=== PATIENT | female | born 1950 | race Caucasian/White ===

== ENCOUNTER 2020-06-09 07:35 | Outpatient (REF) | payer MEDICARE, SELFPAY ==
[2020-06-09 09:12] LABS: Estimated Average Glucose 108 mg/dL; Hemoglobin A1c % 5.4 %
[2020-06-09 09:24] LABS: Alanine Aminotransferase 22 U/L (0-31); Alkaline Phosphatase 87 U/L (39-117); Anion Gap 13 (12-20); Aspartate Amino Transferase 16 U/L (5-31); Bilirubin Total 0.7 mg/dL (0.0-1.0); Blood Urea Nitrogen 21 mg/dL (9-16); Calcium 8.6 mg/dL (8.4-10.2); Carbon Dioxide 24 mmol/L (22-29); Chloride 109 mmol/L (96-108); Estimated Glomerular Filt Rate 59; Glucose Random 98 mg/dL (60-115); Sodium 142 mmol/L (135-145); Total Protein 6.9 g/dL (6.5-8.0)
== END 2020-06-09 07:36 | disposition home or self-care (01) ==
LOC: HO.LAB 07:35
PROVIDERS: PCP Internal Medicine; Visit Provider Internal Medicine
DX: E78.00 Pure hypercholesterolemia, unspecified (principal); F32.5 Major depressive disorder, single episode, in full remission; G25.81 Restless legs syndrome; I10 Essential (primary) hypertension
CPT/HCPCS: 36415; 80053; 83036

== ENCOUNTER 2021-01-05 07:58 | Outpatient (REF) | payer MEDICARE, SELFPAY ==
[2021-01-05 09:05] LABS: MANUAL DIFF FLAG NO
[2021-01-05 09:11] LABS: Basophils Percent Auto 0.4 % (0-2); Eosinophils Absolute Auto 0.5 X10*3/uL (0.0-0.4); Eosinophils Percent Auto 4.6 % (0-4); Hematocrit 38.2 % (37-47); Hemoglobin 12.3 g/dl (12.0-16.0); Imm Gran Abs Auto 0.08 X10*3/uL (0.00-0.03); Imm Gran Pct Auto 0.8 % (0.0-0.4); Lymphocytes Absolute Auto 2.9 X10*3/uL (1.2-4.9); Lymphocytes Percent Auto 29.7 % (20-40); Mean Corpuscular HGB Conc 32.2 g/dl (31.0-35.0); Mean Corpuscular Volume 93.2 fL (80-98); Mean Platelet Volume 10.4 fL (9.4-12.3); Monocytes Absolute Auto 0.7 X10*3/uL (0.1-1.2); Monocytes Percent Auto 6.7 % (2-11); Neutrophils Absolute Auto 5.6 X10*3/uL (2.0-8.3); Neutrophils Percent Auto 57.8 % (45-73); Platelet Count 243 X10*3/uL (160-400); Red Cell Distribution Width 13.1 % (11.0-16.0); White Blood Count 9.7 X10*3/uL (4.8-10.8)
[2021-01-05 10:15] LABS: Alanine Aminotransferase 41 U/L (0-31); Alkaline Phosphatase 114 U/L (39-117); Anion Gap 10 (12-20); Aspartate Amino Transferase 25 U/L (5-31); Bilirubin Total 0.9 mg/dL (0.0-1.0); Blood Urea Nitrogen 15 mg/dL (9-16); Carbon Dioxide 28 mmol/L (22-29); Chloride 106 mmol/L (96-108); Estimated Glomerular Filt Rate 57; Glucose Random 105 mg/dL (60-115); Sodium 140 mmol/L (135-145); Total Protein 6.7 g/dL (6.5-8.0)
[2021-01-05 10:19] LABS: Thyroid Stimulating Hormone 2.27 uIU/mL (0.32-4.0)
== END 2021-01-05 07:59 | disposition home or self-care (01) ==
LOC: HO.LAB 07:58
PROVIDERS: PCP Internal Medicine; Visit Provider Internal Medicine
DX: E78.00 Pure hypercholesterolemia, unspecified (principal); G25.81 Restless legs syndrome; I10 Essential (primary) hypertension; F32.5 Major depressive disorder, single episode, in full remission
CPT/HCPCS: 36415; 80053; 84443; 85025

== ENCOUNTER 2021-01-10 10:30 | Outpatient (REF) | payer MEDICARE, SELFPAY ==
[2021-01-12 23:57] LABS: TS Negative Control Passed; TS Panel A 0; TS Panel B 0; TS Positive Control Passed; TSpotTB Negative (Negative)
== END 2021-01-10 10:31 | disposition home or self-care (01) ==
LOC: HO.LAB 10:30
PROVIDERS: PCP Internal Medicine; Visit Provider Internal Medicine
DX: Z11.1 Encounter for screening for respiratory tuberculosis (principal); E78.00 Pure hypercholesterolemia, unspecified; F32.5 Major depressive disorder, single episode, in full remission; G25.81 Restless legs syndrome; H81.11 Benign paroxysmal vertigo, right ear; I10 Essential (primary) hypertension; R00.2 Palpitations; R06.02 Shortness of breath
CPT/HCPCS: 36415; 86481

== ENCOUNTER → 2021-02-18 13:49 | Outpatient (REF) | payer MEDICARE, SELFPAY | LOC: HO.CARD 13:49 | PROVIDERS: PCP Internal Medicine; Referring Provider Internal Medicine; Visit Provider Internal Medicine | DX: R00.2 Palpitations (principal); R06.02 Shortness of breath; R42 Dizziness and giddiness; I10 Essential (primary) hypertension | CPT/HCPCS: 93005; 99202 ==

== ENCOUNTER → 2021-04-17 09:14 | Outpatient (REF) | payer MEDICARE, SELFPAY ==
--- NOTE | 2021-04-17 09:18 | CA_ITS ---
Transthoracic Echocardiogram Patient (Last, First, Middle): Maggie Porter M Gender: Female Date of : 1950 Age: 71 Procedure Date: 04/17/2021 Procedure Type: Transthoracic Echocardiogram Location: OP Height: 160.02 cm Weight: 79.38 kg BSA: 1.83 m2 Heart Rate: bpm BP: 136 / 80 mmHg Casting Technician: REGULO Miller MD: Paul Colin MD Maintenance Team Leader: Cesar Mahan MD Symptoms: R06.02 - Shortness of breath Study Quality: Fair ECG Rhythm: Sinus Conclusions: - 1. Normal LV systolic function with grade I diastolic dysfunction 2. Normal cardiac valvular Dopplers 3. Normal RVSP 4. Small pericardial effusion Findings Left Ventricle Normal left ventricular size, thickness, and systolic function. The visually estimated ejection fraction is between 60-65%. Spectral Doppler is indicative of an impaired relaxation filling pattern. E/E prime ratio is <8, consistent with normal filling pressures. Evidence suggests grade I (mild) diastolic dysfunction. Right Ventricle Normal right ventricular cavity size and systolic function. Atria Both atria are normal in size. There is lipomatous hypertrophy of the interatrial septum. There is no evidence of interatrial shunt. Aortic Valve The aortic valve was not well visualized. There is no aortic valve stenosis. There is no aortic valve regurgitation. Mitral Valve There is mild anterior and posterior mitral leaflet thickening. There is trace mitral valve regurgitation. There is no mitral valve stenosis. Pulmonic Valve The pulmonic valve was not well visualized. Tricuspid Valve Likely normal tricuspid valve structure and function. There is mild tricuspid valve regurgitation. The right ventricular systolic pressure is normal. The right ventricular systolic pressure is 29 mmHg. Normal right atrial pressure. There is no evidence of pulmonary hypertension. Great Vessels All visible segments of the aorta are normal in size. The pulmonary artery was not well visualized. Venous The inferior vena cava is normal in size and collapses greater than 50% with inspiration. Pericardium/Pleural There is a small circumferential pericardial effusion. Prior Study Comparison No prior study available for comparison. Measurements 2D Linear Measurements IVSd: 1.00 0.6-0.9/0.6-1.0 cm LVIDd: 4.50 3.9-5.3/4.2-5.9 cm LVIDd Index: 2.46 2.4-3.2/2.2-3.1 cm/m2 LVIDs: 2.61 2.0-3.6 cm LVPWd: 0.94 0.7-1.1 cm Ao Root: 3.10 2.1-3.5 cm LA Diam: 3.60 2.7-3.8/3.0-4.0 cm LAIDs Index: 1.97 1.5-2.3 cm/m2 LV Mass: 182.74 67-162/88-224 g LV Mass Index: 99.86 43-95/49-115 g/m2 LVOT Diam: 2.10 3.0+(-)1.3 cm 2D Systolic Function EF 4C: 60.90 >55% EF 2C: 62.00 >55% EF BiP: 59.80 >55% Mitral Valve MV Pk E: 0.85 MV PK A: 0.86 MV Decel Time: 239.00 E/A: 1.00 E'Lateral: 7.94 E'Medial: 7.07 E/E' Med: 12.00 E/E' Lat: 10.70 PHT: 70.00 MVA PHT: 3.[address] [place]: 3.55 Aortic Valve AoV Pk Dominic: 1.51 AoV Mn Dominic: 1.06 AoV VTI: 0.31 AoV Pk Grad: 9.00 Aov Mn Grad: 5.00 LOPEZ Cont.VTI: 2.62 LVOT LVOT Pk Dominic: 1.10 LVOT Mn Dominic: 0.73 LVOT VTI: 0.23 LVOT Pk Grad: 5.00 LVOT Mn Grad: 3.00 LVOT Diam: 2.10 LVOT Area: 3.46 Diastolic Function MV Pk E: 0.85 MV Pk A: 0.86 E/A: 1.00 E'Medial: 7.07 E/E' Med: 12.00 E' Laterial: 7.94 E/E' Lat: 10.70 Right Ventricle TAPSE (mm): 1.99 TVS' Dominic: 18.80 Tricuspid Valve TR Pk Dominic: 2.57 TR Pk Grad: 26.00 RA Press: 3.00 RVSP: 29.00 Great Vessels Aorta Ao Root-2D: 3.10 2.0-3.7 cm Ao Asc: 2.90 2.1-3.4 cm Ao Arch: 2.90 Updated in Other Vendor System with Status of Final Cesar Mahan MD electronically signed on 04/17/2021 11:01:36 AM with status of Final
--- NOTE | 2021-04-17 09:18 | HM_ITS ---
TEST PERFORMED: Cardiac event monitoring. REQUESTING PHYSICIAN: Dr. Colin INDICATION: Palpitations. ENROLLMENT PERIOD: 04/17/2021, to 05/17/2021; 30 days. FINDINGS: In the above monitoring period, underlying rhythm is sinus at 68 beats per minute. There is no evidence of any tachy or bradyarrhythmia or any other abnormalities during this time. CONCLUSION: Essentially unremarkable 30-day monitoring showing sinus rhythm only. Paul Colin MD HS/LV / [id number]
== END ==
LOC: HO.CARD 09:14
PROVIDERS: Visit Provider Internal Medicine
DX: R00.2 Palpitations (principal); R06.02 Shortness of breath
CPT/HCPCS: 93270; 93306

== ENCOUNTER → 2021-06-03 08:35 | Outpatient (BNVA) | payer MEDICARE, SELFPAY | PROVIDERS: PCP Internal Medicine; Visit Provider Internal Medicine | DX: R00.2 Palpitations (principal); R06.02 Shortness of breath; I10 Essential (primary) hypertension; I31.3 Pericardial effusion (noninflammatory) | CPT/HCPCS: 99212 ==

== ENCOUNTER 2021-07-06 07:44 | Outpatient (REF) | payer MEDICARE, SELFPAY ==
[2021-07-06 08:30] LABS: MANUAL DIFF FLAG NO
[2021-07-06 09:02] LABS: Basophils Absolute Auto 0.1 X10*3/uL (0.0-0.2); Basophils Percent Auto 0.5 % (0-2); Eosinophils Absolute Auto 0.4 X10*3/uL (0.0-0.4); Eosinophils Percent Auto 4.3 % (0-4); Hematocrit 39.2 % (37.0-47.0); Hemoglobin 12.3 g/dl (12.0-16.0); Imm Gran Abs Auto 0.08 X10*3/uL (0.00-0.03); Imm Gran Pct Auto 0.8 % (0.0-0.4); Lymphocytes Absolute Auto 2.5 X10*3/uL (1.2-4.9); Lymphocytes Percent Auto 24.6 % (20-40); Mean Corpuscular HGB Conc 31.4 g/dl (31.0-35.0); Mean Corpuscular Hemoglobin 29.5 pg (27.0-33.0); Mean Platelet Volume 10.1 fL (9.4-12.3); Monocytes Absolute Auto 0.7 X10*3/uL (0.1-1.2); Monocytes Percent Auto 6.6 % (2-11); Neutrophils Absolute Auto 6.3 x10*3/uL (2.0-8.3); Neutrophils Percent Auto 63.2 % (45-73); Platelet Count 246 X10*3/uL (160-400); Red Blood Count 4.17 X10*6/uL (4.20-5.50); Red Cell Distribution Width 13.4 % (11.0-16.0)
[2021-07-06 09:22] LABS: Alanine Aminotransferase 49 U/L (0-31); Albumin Level 4.1 g/dL (3.5-5.0); Alkaline Phosphatase 154 U/L (39-117); Anion Gap 13 (12-20); Aspartate Amino Transferase 34 U/L (5-31); Bilirubin Total 1.1 mg/dL (0.0-1.0); Blood Urea Nitrogen 13 mg/dL (9-16); Calcium 9.4 mg/dL (8.4-10.2); Carbon Dioxide 26 mmol/L (22-29); Chloride 106 mmol/L (96-108); Cholesterol 159 mg/dL; Estimated Glomerular Filt Rate 55; Glucose Random 102 mg/dL (60-115); HDL Cholesterol 50 mg/dL; LDL Cholesterol Calculated 91 mg/dl; Potassium 4.4 mmol/L (3.3-5.1); Sodium 141 mmol/L (135-145); Total Protein 7.3 g/dL (6.5-8.0); Triglycerides 93 mg/dL
[2021-07-08 08:14] LABS: Vitamin B12 > 2000 pg/mL (200-900)
== END 2021-07-06 07:45 | disposition home or self-care (01) ==
LOC: HO.LAB 07:44
PROVIDERS: PCP Internal Medicine; Visit Provider Internal Medicine
DX: E78.00 Pure hypercholesterolemia, unspecified (principal); F32.5 Major depressive disorder, single episode, in full remission; G25.81 Restless legs syndrome; H81.11 Benign paroxysmal vertigo, right ear; I10 Essential (primary) hypertension; R00.2 Palpitations; R06.02 Shortness of breath
CPT/HCPCS: 36415; 80053; 80061; 82607; 85025

== ENCOUNTER 2021-10-12 07:35 | Outpatient (REF) | payer MEDICARE, SELFPAY ==
[2021-10-12 08:31] LABS: Alanine Aminotransferase 44 U/L (0-31); Alkaline Phosphatase 157 U/L (39-117); Anion Gap 11 (12-20); Aspartate Amino Transferase 32 U/L (5-31); Bilirubin Total 0.8 mg/dL (0.0-1.0); Blood Urea Nitrogen 17 mg/dL (9-16); Carbon Dioxide 28 mmol/L (22-29); Chloride 106 mmol/L (96-108); Estimated Glomerular Filt Rate 50; Glucose Random 116 mg/dL (60-115); Potassium 4.4 mmol/L (3.3-5.1); Sodium 141 mmol/L (135-145); Total Protein 7.1 g/dL (6.5-8.0)
[2021-10-12 08:55] LABS: Ferritin 169 ng/mL (10-250); Thyroid Stimulating Hormone 2.43 uIU/mL (0.32-4.0)
== END 2021-10-12 07:36 | disposition home or self-care (01) ==
LOC: HO.LAB 07:35
PROVIDERS: PCP Internal Medicine; Visit Provider Internal Medicine
DX: E78.00 Pure hypercholesterolemia, unspecified (principal); G25.81 Restless legs syndrome; I10 Essential (primary) hypertension; I31.3 Pericardial effusion (noninflammatory); R00.2 Palpitations; R06.02 Shortness of breath
CPT/HCPCS: 36415; 80053; 82728; 84443

== ENCOUNTER 2022-01-18 07:18 | Outpatient (REF) | payer MEDICARE, SELFPAY ==
[2022-01-18 07:24] LABS: MANUAL DIFF FLAG NO
[2022-01-18 07:54] LABS: Basophils Absolute Auto 0.1 X10*3/uL (0.0-0.2); Basophils Percent Auto 0.7 % (0-2); Eosinophils Absolute Auto 0.5 X10*3/uL (0.0-0.4); Eosinophils Percent Auto 6.1 % (0-4); Hematocrit 36.8 % (37.0-47.0); Hemoglobin 11.7 g/dl (12.0-16.0); Imm Gran Abs Auto 0.05 X10*3/uL (0.00-0.03); Imm Gran Pct Auto 0.6 % (0.0-0.4); Lymphocytes Absolute Auto 2.5 X10*3/uL (1.2-4.9); Lymphocytes Percent Auto 29.9 % (20-40); Mean Corpuscular HGB Conc 31.8 g/dl (31.0-35.0); Mean Corpuscular Hemoglobin 30.2 pg (27.0-33.0); Mean Corpuscular Volume 95.1 fL (80.0-98.0); Mean Platelet Volume 10.7 fL (9.4-12.3); Monocytes Absolute Auto 0.7 X10*3/uL (0.1-1.2); Neutrophils Absolute Auto 4.6 x10*3/uL (2.0-8.3); Neutrophils Percent Auto 54.7 % (45-73); Platelet Count 218 X10*3/uL (160-400); Red Blood Count 3.87 X10*6/uL (4.20-5.50); Red Cell Distribution Width 13.5 % (11.0-16.0); White Blood Count 8.5 X10*3/uL (4.8-10.8)
[2022-01-18 08:25] LABS: Alanine Aminotransferase 57 U/L (0-31); Albumin Level 4.1 g/dL (3.5-5.0); Alkaline Phosphatase 150 U/L (39-117); Anion Gap 14 (12-20); Aspartate Amino Transferase 41 U/L (5-31); Bilirubin Total 0.8 mg/dL (0.0-1.0); Blood Urea Nitrogen 18 mg/dL (9-16); Calcium 8.8 mg/dL (8.4-10.2); Carbon Dioxide 25 mmol/L (22-29); Chloride 106 mmol/L (96-108); Estimated Glomerular Filt Rate 54; Glucose Random 100 mg/dL (60-115); Potassium 4.2 mmol/L (3.3-5.1); Sodium 141 mmol/L (135-145); Total Protein 7.2 g/dL (6.5-8.0)
== END 2022-01-18 07:19 | disposition home or self-care (01) ==
LOC: HO.LAB 07:18
PROVIDERS: PCP Internal Medicine; Visit Provider Internal Medicine
DX: E78.00 Pure hypercholesterolemia, unspecified (principal); G25.81 Restless legs syndrome; I10 Essential (primary) hypertension; R00.2 Palpitations
CPT/HCPCS: 36415; 80053; 85025

== ENCOUNTER → 2022-04-09 09:06 | Outpatient (REF) | payer MEDICARE, SELFPAY ==
--- NOTE | 2022-04-09 09:09 | CA_ITS ---
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 Normal LV systolic function with grade 2 diastolic dysfunction 2. Normal cardiac valvular Doppler with mild mitral and calcification 3. Upper limits of normal RV systolic pressure 4. Small circumferential pericardial effusion Findings Left Ventricle Normal left ventricular size, thickness, and systolic function. The visually estimated ejection fraction is between 60-65%. Spectral Doppler is indicative of a pseudonormal filling pattern. E/E prime ratio is >15, consistent with elevated filling pressures. Evidence suggests grade II (moderate) diastolic dysfunction. Right Ventricle Normal right ventricular cavity size and systolic function. Atria The left atrium is likely dilated. There is lipomatous hypertrophy of the interatrial septum. There is no evidence of interatrial shunt. The right atrium is normal in size. Aortic Valve The aortic valve structure and function is likely normal. There is no aortic valve stenosis. There is no aortic valve regurgitation. Mitral Valve Likely normal mitral valve structure and function. There is mild anterior and posterior mitral leaflet thickening. There is mild mitral annular calcification. There is trace mitral valve regurgitation. There is no mitral valve stenosis. Pulmonic Valve The pulmonic valve was not well visualized. Tricuspid Valve Likely normal tricuspid valve structure and function. There is mild tricuspid valve regurgitation. The right ventricular systolic pressure is normal. Normal right atrial pressure. There is no evidence of pulmonary hypertension. Great Vessels All visible segments of the aorta are normal in size. The pulmonary artery was not well visualized. Venous The inferior vena cava is normal in size and collapses greater than 50% with inspiration. Pericardium/Pleural There is a small circumferential pericardial effusion. Prior Study Comparison Changes noted compared to prior study dated: 04/17/2021. Grade 2 diastolic dysfunction present Measurements 2D Linear Measurements IVSd: 1.02 0.6-0.9/0.6-1.0 cm LVIDd: 4.70 3.9-5.3/4.2-5.9 cm LVIDd Index: 2.54 2.4-3.2/2.2-3.1 cm/m2 LVIDs: 2.63 2.0-3.6 cm LVPWd: 1.07 0.7-1.1 cm LA Diam: 4.00 2.7-3.8/3.0-4.0 cm LAIDs Index: 2.16 1.5-2.3 cm/m2 LV Mass: 217.59 67-162/88-224 g LV Mass Index: 117.62 43-95/49-115 g/m2 LVOT Diam: 2.10 3.0+(-)1.3 cm 2D Systolic Function EF 4C: 65.50 >55% EF 2C: 64.30 >55% EF BiP: 65.70 >55% Mitral Valve MV Pk E: 1.06 MV PK A: 0.91 MV Decel Time: 215.00 E/A: 1.20 E'Lateral: 7.72 E'Medial: 5.22 E/E' Med: 20.30 E/E' Lat: 13.70 PHT: 63.00 MVA PHT: 3.49 Decel [place]: 4.93 Aortic Valve AoV Pk Dominic: 1.55 AoV Mn Dominic: 0.95 AoV VTI: 0.34 AoV Pk Grad: 10.00 Aov Mn Grad: 4.00 LOPEZ Cont.VTI: 2.43 LVOT LVOT Pk Dominic: 1.02 LVOT Mn Dominic: 0.64 LVOT VTI: 0.24 LVOT Pk Grad: 4.00 LVOT Mn Grad: 2.00 LVOT Diam: 2.10 LVOT Area: 3.46 Diastolic Function MV Pk E: 1.06 MV Pk A: 0.91 E/A: 1.20 E'Medial: 5.22 E/E' Med: 20.30 E' Laterial: 7.72 E/E' Lat: 13.70 Right Ventricle TAPSE (mm): 28.10 TVS' Dominic: 16.50 Tricuspid Valve TR Pk Dominic: 2.85 TR Pk Grad: 32.00 RA Press: 3.00 RVSP: 35.00 Great Vessels Aorta Sinus of Valsalva: 3.12 2.0-3.5 cm Ao Asc: 2.90 2.1-3.4 cm Updated in Other Vendor System with Status of Final Cesar Mahan MD electronically signed on 04/10/2022 12:30:18 PM with status of Final
== END ==
LOC: HO.CARD 09:06
PROVIDERS: PCP Internal Medicine; Visit Provider Internal Medicine
DX: I31.39 Other pericardial effusion (noninflammatory) (principal)
CPT/HCPCS: 93306

== ENCOUNTER → 2022-06-16 08:54 | Outpatient (BNVA) | payer MEDICARE, SELFPAY | PROVIDERS: PCP Internal Medicine; Referring Provider Internal Medicine; Visit Provider Internal Medicine | DX: I25.10 Atherosclerotic heart disease of native coronary artery without angina pectoris (principal); I10 Essential (primary) hypertension; R00.1 Bradycardia, unspecified | CPT/HCPCS: 93005; 99212 ==

== ENCOUNTER 2022-06-24 08:59 | Outpatient (REF) | payer MEDICARE, SELFPAY ==
[2022-06-24 10:12] LABS: Anion Gap 12 (12-20); Blood Urea Nitrogen 20 mg/dL (9-16); Calcium 8.7 mg/dL (8.4-10.2); Carbon Dioxide 27 mmol/L (22-29); Chloride 106 mmol/L (96-108); Estimated Glomerular Filt Rate > 60; Glucose Random 130 mg/dL (60-115); Potassium 3.9 mmol/L (3.3-5.1); Sodium 141 mmol/L (135-145)
== END 2022-06-24 09:00 | disposition home or self-care (01) ==
LOC: HO.LAB 08:59
PROVIDERS: PCP Internal Medicine; Visit Provider Internal Medicine
DX: I25.10 Atherosclerotic heart disease of native coronary artery without angina pectoris (principal)
CPT/HCPCS: 36415; 80048

== ENCOUNTER 2022-07-21 09:04 | Outpatient (REF) | payer MEDICARE, SELFPAY ==
[2022-07-21 09:21] LABS: MANUAL DIFF FLAG NO
[2022-07-21 10:00] LABS: Basophils Absolute Auto 0.1 X10*3/uL (0.0-0.2); Basophils Percent Auto 0.8 % (0-2); Eosinophils Absolute Auto 0.5 X10*3/uL (0.0-0.4); Eosinophils Percent Auto 3.9 % (0-4); Hematocrit 37.7 % (37.0-47.0); Imm Gran Abs Auto 0.11 X10*3/uL (0.00-0.03); Imm Gran Pct Auto 0.9 % (0.0-0.4); Lymphocytes Absolute Auto 2.8 X10*3/uL (1.2-4.9); Lymphocytes Percent Auto 23.2 % (20-40); Mean Corpuscular HGB Conc 31.8 g/dl (31.0-35.0); Mean Corpuscular Hemoglobin 30.5 pg (27.0-33.0); Mean Corpuscular Volume 95.7 fL (80.0-98.0); Monocytes Absolute Auto 0.8 X10*3/uL (0.1-1.2); Monocytes Percent Auto 6.4 % (2-11); Neutrophils Absolute Auto 7.8 x10*3/uL (2.0-8.3); Neutrophils Percent Auto 64.8 % (45-73); Platelet Count 238 X10*3/uL (160-400); Red Blood Count 3.94 X10*6/uL (4.20-5.50); Red Cell Distribution Width 13.8 % (11.0-16.0)
[2022-07-21 10:23] LABS: Alanine Aminotransferase 36 U/L (0-31); Albumin Level 3.9 g/dL (3.5-5.0); Alkaline Phosphatase 144 U/L (39-117); Anion Gap 9 (12-20); Aspartate Amino Transferase 27 U/L (5-31); Bilirubin Total 0.8 mg/dL (0.0-1.0); Blood Urea Nitrogen 16 mg/dL (9-16); Calcium 9.1 mg/dL (8.4-10.2); Carbon Dioxide 30 mmol/L (22-29); Chloride 105 mmol/L (96-108); Cholesterol 159 mg/dL; Estimated Glomerular Filt Rate 58; Glucose Random 113 mg/dL (60-115); HDL Cholesterol 48 mg/dL; LDL Cholesterol Calculated 92 mg/dl; Potassium 4.1 mmol/L (3.3-5.1); Sodium 140 mmol/L (135-145); Total Protein 6.9 g/dL (6.5-8.0); Triglycerides 96 mg/dL
== END 2022-07-21 09:05 | disposition home or self-care (01) ==
LOC: HO.LAB 09:04
PROVIDERS: PCP Internal Medicine; Visit Provider Internal Medicine
DX: E78.00 Pure hypercholesterolemia, unspecified (principal); F33.41 Major depressive disorder, recurrent, in partial remission; I10 Essential (primary) hypertension; R74.01 Elevation of levels of liver transaminase levels
CPT/HCPCS: 36415; 80053; 80061; 85025

== ENCOUNTER → 2022-08-12 08:34 | Outpatient (BNVA) | payer MEDICARE, SELFPAY | PROVIDERS: PCP Internal Medicine; Referring Provider Internal Medicine; Visit Provider Internal Medicine | DX: I51.89 Other ill-defined heart diseases (principal); I31.39 Other pericardial effusion (noninflammatory); I10 Essential (primary) hypertension | CPT/HCPCS: 93005; 99212 ==

== ENCOUNTER 2023-01-19 06:06 | Outpatient (REF) | payer MEDICARE, SELFPAY ==
[2023-01-19 06:26] LABS: MANUAL DIFF FLAG NO
[2023-01-19 08:26] LABS: Basophils Absolute Auto 0.1 X10*3/uL (0.0-0.2); Eosinophils Absolute Auto 0.7 X10*3/uL (0.0-0.4); Eosinophils Percent Auto 6.4 % (0-4); Hematocrit 36.2 % (37.0-47.0); Hemoglobin 11.4 g/dl (12.0-16.0); Imm Gran Abs Auto 0.07 X10*3/uL (0.00-0.03); Imm Gran Pct Auto 0.7 % (0.0-0.4); Lymphocytes Absolute Auto 2.8 X10*3/uL (1.2-4.9); Lymphocytes Percent Auto 26.8 % (20-40); Mean Corpuscular HGB Conc 31.5 g/dl (31.0-35.0); Mean Corpuscular Hemoglobin 30.1 pg (27.0-33.0); Mean Corpuscular Volume 95.5 fL (80.0-98.0); Mean Platelet Volume 11.5 fL (9.4-12.3); Monocytes Absolute Auto 0.6 X10*3/uL (0.1-1.2); Monocytes Percent Auto 5.9 % (2-11); Neutrophils Absolute Auto 6.2 x10*3/uL (2.0-8.3); Neutrophils Percent Auto 59.2 % (45-73); Platelet Count 243 X10*3/uL (160-400); Red Blood Count 3.79 X10*6/uL (4.20-5.50); Red Cell Distribution Width 14.3 % (11.0-16.0); White Blood Count 10.5 X10*3/uL (4.8-10.8)
[2023-01-19 08:37] LABS: Estimated Average Glucose 103 mg/dL; Hemoglobin A1c % 5.2 % (<6.0)
[2023-01-19 08:54] LABS: Alanine Aminotransferase 28 U/L (0-31); Albumin Level 3.9 g/dL (3.5-5.0); Alkaline Phosphatase 159 U/L (39-117); Anion Gap 12 (12-20); Aspartate Amino Transferase 24 U/L (5-31); Bilirubin Total 0.6 mg/dL (0.0-1.0); Blood Urea Nitrogen 15 mg/dL (9-16); Calcium 9.3 mg/dL (8.4-10.2); Carbon Dioxide 26 mmol/L (22-29); Chloride 107 mmol/L (96-108); Cholesterol 149 mg/dL (<200); Estimated Glomerular Filt Rate 59; Glucose Random 99 mg/dL (60-115); HDL Cholesterol 49 mg/dL (>40); LDL Cholesterol Calculated 85 mg/dL (<100); Potassium 4.1 mmol/L (3.3-5.1); Sodium 141 mmol/L (135-145); Total Protein 7.2 g/dL (6.5-8.0); Triglycerides 77 mg/dL (<150)
[2023-01-19 09:00] LABS: Thyroid Stimulating Hormone 2.34 uIU/mL (0.32-4.0)
== END 2023-01-19 06:07 | disposition home or self-care (01) ==
LOC: HO.LAB 06:06
PROVIDERS: PCP Internal Medicine; Visit Provider Internal Medicine
DX: E78.00 Pure hypercholesterolemia, unspecified (principal); F32.5 Major depressive disorder, single episode, in full remission; I10 Essential (primary) hypertension; R73.01 Impaired fasting glucose; R74.01 Elevation of levels of liver transaminase levels
CPT/HCPCS: 36415; 80053; 80061; 83036; 84443; 85025

== ENCOUNTER 2023-07-18 07:31 | Outpatient (REF) | payer MEDICARE, SELFPAY ==
[2023-07-18 08:21] LABS: MANUAL DIFF FLAG NO
[2023-07-18 08:42] LABS: Basophils Absolute Auto 0.1 X10*3/uL (0.0-0.2); Basophils Percent Auto 0.7 % (0-2); Eosinophils Absolute Auto 0.6 X10*3/uL (0.0-0.4); Eosinophils Percent Auto 5.6 % (0-4); Hematocrit 37.1 % (37.0-47.0); Hemoglobin 11.9 g/dl (12.0-16.0); Imm Gran Abs Auto 0.08 X10*3/uL (0.00-0.03); Imm Gran Pct Auto 0.7 % (0.0-0.4); Lymphocytes Absolute Auto 2.7 X10*3/uL (1.2-4.9); Mean Corpuscular HGB Conc 32.1 g/dl (31.0-35.0); Mean Corpuscular Hemoglobin 30.9 pg (27.0-33.0); Mean Corpuscular Volume 96.4 fL (80.0-98.0); Mean Platelet Volume 11.1 fL (9.4-12.3); Monocytes Absolute Auto 0.7 X10*3/uL (0.1-1.2); Monocytes Percent Auto 6.5 % (2-11); Neutrophils Absolute Auto 6.9 x10*3/uL (2.0-8.3); Neutrophils Percent Auto 62.5 % (45-73); Platelet Count 215 X10*3/uL (160-400); Red Blood Count 3.85 X10*6/uL (4.20-5.50); Red Cell Distribution Width 14.1 % (11.0-16.0); White Blood Count 11.1 X10*3/uL (4.8-10.8)
[2023-07-18 09:24] LABS: Alanine Aminotransferase 37 U/L (0-31); Albumin Level 3.9 g/dL (3.5-5.0); Alkaline Phosphatase 155 U/L (39-117); Anion Gap 12 (12-20); Aspartate Amino Transferase 30 U/L (5-31); Bilirubin Total 0.8 mg/dL (0.0-1.0); Blood Urea Nitrogen 16 mg/dL (9-16); Calcium 9.2 mg/dL (8.4-10.2); Carbon Dioxide 28 mmol/L (22-29); Chloride 106 mmol/L (96-108); Estimated Glomerular Filt Rate > 60; Glucose Random 103 mg/dL (60-115); Potassium 4.1 mmol/L (3.3-5.1); Sodium 142 mmol/L (135-145); Total Protein 7.4 g/dL (6.5-8.0)
[2023-07-18 09:43] LABS: Ferritin 206 ng/mL (10-250); Vitamin D 25-OH Total 19.9 ng/mL (>30)
== END 2023-07-18 07:32 | disposition home or self-care (01) ==
LOC: HO.LAB 07:31
PROVIDERS: PCP Internal Medicine; Visit Provider Internal Medicine
DX: E78.00 Pure hypercholesterolemia, unspecified (principal); F32.5 Major depressive disorder, single episode, in full remission; G25.81 Restless legs syndrome; M81.8 Other osteoporosis without current pathological fracture; I10 Essential (primary) hypertension
CPT/HCPCS: 36415; 80053; 82306; 82728; 85025

== ENCOUNTER 2023-08-13 09:36 | Outpatient (AMB) | payer MEDICARE, SELFPAY ==
--- NOTE | 2023-08-13 09:38 | MHC.OFFVIS ---
Vital Signs 08/13/23 09:39 Height 5 ft 3 in Weight 176 lb 12.972 oz BMI 31.3 BP 138/68 Blood Pressure Location Lt brachial Position Sitting Pulse 49 L Pulse Source Monitor Pulse Oximetry (%) 98 Oxygen Delivery Method Room Air Intake Visit Reasons: Dr Jacome ref req fu- palpitations Allergies No Known Allergies Allergy (Verified 08/12/22 08:40) Medication List - Last Reconciled 08/13/23 by Paul Colin MD citalopram 20 mg PO DAILY loratadine (Allergy Relief (loratadine)) 10 mg PO DAILY metoprolol succinate ER 50 mg PO DAILY omeprazole 20 mg PO DAILY pramipexole 1 mg PO TID pravastatin 40 mg PO BEDTIME valsartan 160 mg PO DAILY HPI Comments Details: Maggie returns for follow up. In the past, she had reported various symptoms including palpitations, heart racing, dizziness, shortness of breath at different times. She has had a fairly comprehensive workup. She was due to be seen in about 2 years per last note but it seems that she had another episode of palpitations and hence has been referred back. Somewhat of a sudden onset and she was perturbed by it. [facility] Medical History Essential hypertension Surgical History History of appendectomy History of cholecystectomy Family History Father No problems noted. Mother No problems noted. Social History Patient Tobacco Use Status: Former Tobacco user Quit Date: 15 yrs ago Review of Systems Const Denies weakness ENT Denies dizziness Card Denies chest pain, Denies chest pain with activity, Denies syncope, Denies rapid heart rate, Denies pedal edema, Denies edema, Denies leg edema, Denies lightheadedness, Denies palpitations, Denies dyspnea, Denies dyspnea on exertion and Denies orthopnea Resp Denies cough, Denies dyspnea and Denies dyspnea on exertion GI Denies hematochezia and Denies change in stool character Musc Denies abnormal gait, Denies muscle cramps, Denies muscle weakness, Denies numbness, Denies radiating pain into limb and Denies tingling Neuro Denies abnormal gait, Denies dizziness, Denies syncope, Denies numbness, Denies tingling and Denies weakness Endo Denies palpitations Physical Exam Vital Signs: Last Vital Signs Pulse 49 L 08/13/23 09:39 BP 138/68 08/13/23 09:39 Pulse Ox 98 08/13/23 09:39 Oxygen Delivery Method Room Air 08/13/23 09:39 BMI result Body Mass Index 31.3 Const General: comfortable and no acute distress Orientation/consciousness: patient oriented x3 HEENT Other: Unremarkable Head: Yes normal to inspection Neck Neck: Yes normal visual inspection Chest Chest palpation & inspection: normal inspection of the chest Resp Auscultation: clear to auscultation bilaterally Cardio Palpation: normal PMI Heart sounds: S1 normal heart sound present, S2 normal heart sound present, no gallops, no murmurs and no rubs GI Palpation (GI): Soft to palpation Back/Spine/Pelvis Other: unremarkable Skin General skin exam: no rashes or lesions noted Neuro General: patient oriented x3 Extrem General: Yes normal to inspection Psych Mental Status: mental status grossly normal Office Procedures EKG Details: EKG with sinus bradycardia at 49/Min; no significant ST-T changes and otherwise unremarkable. [place] [id number], Complete Assessment & Plan Assessment & Plan (1) Heart palpitations: Code(s): R00.2 - Palpitations Category: Medical (2) Diastolic dysfunction: Code(s): I51.89 - Other ill-defined heart diseases Category: Medical (3) Essential hypertension: Code(s): I10 - Essential (primary) hypertension Category: Medical (4) Pericardial effusion: Code(s): I31.39 - Other pericardial effusion (noninflammatory) Plan Cardiac studies reviewed. EKG today shows sinus bradycardia. Echocardiogram from 2021 with preserved LVEF, 60-65% and grade 2 diastolic dysfunction with elevated filling pressures. Small circumferential pericardial effusion. 30 day monitor from 2020 shows sinus rhythm only. Patient states that she actually had palpitations during this time but no arrhythmias detected. Coronary CTA from 2022 with no significant disease. No coronary artery calcification. Etiology for the palpitations not clear. We can repeat another 14 day Holter. Could be any combination of supraventricular/ventricular ectopy, atrial arrhythmias among others. Doubt any ventricular arrhythmias. Can not rule out anxiety either. With regard to the diastolic dysfunction, particularly from hypertension as there is no evidence of coronary disease. Hence discontinue blood pressure medications including beta-blockers and valsartan. With regard to the pericardial effusion, small and not of any hemodynamic significance. If any shortness of breath in the future, then she needs to get a repeat echocardiogram to ensure nothing changed. Follow-up after the Holter monitor. Orders: Orders ECG 14 day holter monitor Today R00.2 - Palpitations Coding Level of Care Code Est Pt Level 4 (12335) Diagnoses Heart palpitations R00.2 Diastolic dysfunction I51.89 Essential hypertension I10 Pericardial effusion I31.39 CPT Codes EKG - CPT: [id number], Complete ([id number])
[2023-08-13 09:39] VITALS: BP 138/68; PULSE 49; O2SAT 98; BMI 31.3
== END 2023-08-13 10:02 | disposition home or self-care (01) ==
PROVIDERS: PCP Internal Medicine; Visit Provider Internal Medicine
DX: R00.2 Palpitations (principal); I51.89 Other ill-defined heart diseases; I10 Essential (primary) hypertension; I31.39 Other pericardial effusion (noninflammatory)
CPT/HCPCS: 93010; 99214

== ENCOUNTER → 2023-08-13 09:36 | Outpatient (BNVA) | payer MEDICARE, SELFPAY | PROVIDERS: PCP Internal Medicine; Visit Provider Internal Medicine | DX: R00.2 Palpitations (principal); I11.9 Hypertensive heart disease without heart failure; I31.39 Other pericardial effusion (noninflammatory) | CPT/HCPCS: 93005; 99212 ==

== ENCOUNTER → 2023-08-18 10:09 | Outpatient (REF) | payer MEDICARE, SELFPAY ==
--- NOTE | 2023-08-18 10:12 | HM_ITS ---
Conclusion: 1. Patient was monitored for total period of 13 days and 20 hours 2. Baseline was normal sinus rhythm with average heart of 67 beats per minute 3. No significant pauses noted 4. Occasional PACs noted with total of 50 SVT events, fastest at 188 beats per minute and longest at 15 beats 5. Patient marked the counter 5 times with symptoms of shortness of breath correlating with sinus rhythm MTDD
== END ==
LOC: HO.CARD 10:09
PROVIDERS: PCP Internal Medicine; Visit Provider Internal Medicine
DX: R00.2 Palpitations (principal)
CPT/HCPCS: 93246

== ENCOUNTER → 2023-08-18 10:12 | Outpatient (BNV) | payer MEDICARE, SELFPAY | PROVIDERS: PCP Internal Medicine; Visit Provider Internal Medicine Cardiovascular Disease | DX: I49.1 Atrial premature depolarization (principal); I47.10 Supraventricular tachycardia, unspecified | CPT/HCPCS: 93248 ==

== ENCOUNTER 2023-10-12 08:38 | Outpatient (AMB) | payer MEDICARE, SELFPAY ==
[2023-10-12 08:53] VITALS: BP 100/62; PULSE 57; BMI 30.2
--- NOTE | 2023-10-12 08:53 | A.OFFVIS_ITS ---
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 Today she reports that she will notice rapid heart palpitations. She feels this can last several minutes to even an hour at a time. She describes having some associated shortness of breath and lightheadedness at times. No presyncope, syncope, falls. No PND, orthopnea or edema. No chest discomfort at rest or with activity. She does only light physical activities. Taking all meds as directed. Has 1 caffeinated beverage daily. Reports being under high emotional stress recently. [facility] Medical History Essential hypertension Surgical History History of appendectomy History of cholecystectomy Family History Father No problems noted. Mother No problems noted. Social History Patient Tobacco Use Status: Former Tobacco user Review of Systems Const All systems reviewed & are unremarkable except as noted in HPI and below ENT Denies dizziness Card Details: palpitations Denies chest pain, Denies chest pain at rest, Denies chest pain with activity, Denies rapid heart rate, Denies pedal edema, Denies edema, Denies leg edema, Denies lightheadedness, Denies palpitations, Denies dyspnea, Denies dyspnea on exertion and Denies orthopnea Resp Denies cough, Denies dyspnea and Denies dyspnea on exertion GI Denies hematochezia and Denies change in stool character Musc Denies abnormal gait, Denies limited range of motion, Denies muscle cramps, Denies muscle weakness, Denies numbness, Denies radiating pain into limb, Denies stiffness and Denies tingling Neuro Denies abnormal gait, Denies dizziness, Denies numbness and Denies tingling Endo Denies palpitations Physical Exam Vital Signs: Last Vital Signs Pulse 57 10/12/23 08:53 BP 100/62 10/12/23 08:53 BMI result Body Mass Index 30.2 Const General: cooperative, healthy appearing, comfortable and no acute distress Orientation/consciousness: patient oriented x3 Neck Neck: Yes normal visual inspection and Yes no JVD Resp Effort & Inspection: normal respiratory effort Auscultation: clear to auscultation bilaterally, no crackles, no rales, no rhonchi and no wheezes Cardio Jugular venous distension: no JVD Rate: regular rate Rhythm: regular rhythm Heart sounds: S1 normal heart sound present, S2 normal heart sound present, no murmurs and no rubs Neuro General: patient oriented x3 Extrem General: Yes normal to inspection, No no pedal edema and No calf tenderness Psych Appearance: grossly normal Mental Status: mental status grossly normal Speech and movement: Normal speech and movement present Assessment & Plan Assessment & Plan (1) Heart palpitations: Code(s): R00.2 - Palpitations Category: Medical Plan: Report of heart palpitations which feels like a rapid heartbeat along with shortness of breath and lightheadedness. Episodes not occurring daily. She can feel it a few times monthly. Prior echocardiogram from 2021 showed EF 60-65%, grade 2 diastolic dysfunction, small pericardial effusion. A CTA of the coronary arteries was done 2022 showing no significant disease, no coronary calcifications. EKG done last visit shows sinus bradycardia, heart rate 49. She did wear a Holter monitor on 08/18/2023 for 14 days showing sinus rhythm with average heart rate 67, occasional PACs with 50 SVT events, fastest 188 bpm and longest 15 beats, her symptom of shortness of breath correlated with sinus rhythm. Test results reviewed with her in detail. She continues on metoprolol XL 50 mg daily. Heart rate today is 57. It seems that many times her brief SVT episodes are asymptomatic. She drinks 1 caffeinated beverage daily. Suggested she switch to decaf. Reviewed stress reduction activities. Reviewed maintaining good hydration and get adequate rest. Will continue metoprolol at current dose. If she has sustained rapid heart palpitations she is to seek emergency medical care. Cardiology follow-up 3 months, sooner if needed. (2) Essential hypertension: Code(s): I10 - Essential (primary) hypertension Category: Medical Plan: Running on the low side today, asymptomatic. No med changes made. (3) SOB (shortness of breath): Code(s): R06.02 - Shortness of breath Category: Medical Plan: As above, based on Holter this symptom is correlating with sinus rhythm. (4) SVT (supraventricular tachycardia): Code(s): I47.10 - Supraventricular tachycardia, unspecified Category: Medical Plan: Brief episodes as above Plan Time spent on chart review, documentation, interview and assessment Orders: Orders CA echo transthoracic complete Today I47.10 - Supraventricular tachycardia, unspecified, I51.89 - Other ill-defined heart diseases Coding Level of Care Code Est Pt Level 3 (76823) Diagnoses Heart palpitations R00.2 Essential hypertension I10 SOB (shortness of breath) R06.02 SVT (supraventricular tachycardia) I47.10 Time Spent (min) 24
== END 2023-10-12 09:20 | disposition home or self-care (01) ==
PROVIDERS: PCP Internal Medicine; Visit Provider Nurse Practitioner Family
DX: R00.2 Palpitations (principal); I10 Essential (primary) hypertension; R06.02 Shortness of breath; I47.10 Supraventricular tachycardia, unspecified
CPT/HCPCS: 99213

== ENCOUNTER → 2023-10-12 08:38 | Outpatient (BNVA) | payer MEDICARE, SELFPAY | PROVIDERS: PCP Internal Medicine; Visit Provider Nurse Practitioner Family | DX: R00.2 Palpitations (principal); I10 Essential (primary) hypertension; R06.02 Shortness of breath; I47.10 Supraventricular tachycardia, unspecified; Z79.899 Other long term (current) drug therapy | CPT/HCPCS: 99212 ==

== ENCOUNTER → 2023-12-08 08:55 | Outpatient (REF) | payer MEDICARE, SELFPAY ==
--- NOTE | 2023-12-08 08:57 | CA_ITS ---
Transthoracic Echocardiogram Patient (Last, First, Middle): Magige Porter M Gender: Female Date of : 1950 Age: 73 Procedure Date: 12/08/2023 Procedure Type: Transthoracic Echocardiogram Location: OP Height: 160.02 cm Weight: 74.84 kg BSA: 1.78 m2 Heart Rate: bpm BP: 114 / 60 mmHg Mess Attendant Crew: JO ANN Referring MD: Dorina Sims DIETITIAN TEACHEREdyC Symptoms: I47.10 - Supraventricular tachycardia, unspecified Study Quality: Fair ECG Rhythm: Sinus Conclusions: - The left ventricular systolic function is normal. The visually estimated ejection fraction is between 65-70%. - No obvious valvular pathology seen on this study. - There is a small loculated pericardial effusion overlying the left ventricle. Findings Left Ventricle Normal left ventricular cavity size. There is normal left ventricular wall thickness. The left ventricular systolic function is normal. The visually estimated ejection fraction is between 65-70%. There is no evidence of regional wall motion abnormalities. Evidence suggests grade I (mild) diastolic dysfunction. LV peak GLS -22%. Right Ventricle Normal right ventricular cavity size and systolic function. Atria Both atria are normal in size. Aortic Valve The aortic valve was not well visualized. There is no aortic valve stenosis. There is no aortic valve regurgitation. Mitral Valve The mitral valve appears normal. There is no mitral valve regurgitation. There is no mitral valve stenosis. Pulmonic Valve The pulmonic valve is likely normal. Tricuspid Valve There is trace tricuspid valve regurgitation. There is no evidence of pulmonary hypertension. Great Vessels The asc aorta is normal in size. Venous The inferior vena cava is normal in size and collapses greater than 50% with inspiration. Pericardium/Pleural There is a small loculated pericardial effusion overlying the left ventricle. Prior Study Comparison No significant change compared to prior study dated: 04/09/2022. Recommendations, Care & Conclusions No obvious valvular pathology seen on this study. Measurements 2D Linear Measurements IVSd: 1.03 0.6-0.9/0.6-1.0 cm LVIDd: 5.05 3.9-5.3/4.2-5.9 cm LVIDd Index: 2.84 2.4-3.2/2.2-3.1 cm/m2 LVIDs: 2.68 2.0-3.6 cm LVPWd: 0.96 0.7-1.1 cm LA Diam: 3.90 2.7-3.8/3.0-4.0 cm LAIDs Index: 2.19 1.5-2.3 cm/m2 LV Mass: 229.40 67-162/88-224 g LV Mass Index: 128.87 43-95/49-115 g/m2 LVOT Diam: 2.00 3.0+(-)1.3 cm 2D Systolic Function EF 4C: 64.90 >55% EF 2C: 59.50 >55% EF BiP: 61.30 >55% Mitral Valve MV Pk E: 1.00 MV PK A: 1.10 MV Decel Time: 193.00 E/A: 0.90 E'Lateral: 7.72 E'Medial: 4.57 E/E' Med: 21.80 E/E' Lat: 12.90 PHT: 56.00 MVA PHT: 3.93 Decel [place]: 5.18 Aortic Valve AoV Pk Dominic: 1.75 AoV Mn Dominic: 1.21 AoV VTI: 0.42 AoV Pk Grad: 12.00 Aov Mn Grad: 7.00 LOPEZ Cont.VTI: 2.06 LVOT LVOT Pk Dominic: 1.38 LVOT Mn Dominic: 0.79 LVOT VTI: 0.27 LVOT Pk Grad: 8.00 LVOT Mn Grad: 3.00 LVOT Diam: 2.00 LVOT Area: 3.14 Diastolic Function MV Pk E: 1.00 MV Pk A: 1.10 E/A: 0.90 E'Medial: 4.57 E/E' Med: 21.80 E' Laterial: 7.72 E/E' Lat: 12.90 Right Ventricle TAPSE (mm): 24.80 TVS' Dominic: 22.20 Tricuspid Valve TR Pk Dominic: 2.09 TR Pk Grad: 17.00 RA Press: 3.00 RVSP: 20.00 Great Vessels Aorta Sinus of Valsalva: 3.09 2.0-3.5 cm Ao Asc: 3.10 2.1-3.4 cm Updated in Other Vendor System with Status of Final Paul Colin MD electronically signed on 12/08/2023 3:08:29 PM with status of Final
== END ==
LOC: HO.CARD 08:55
PROVIDERS: PCP Internal Medicine; Visit Provider Nurse Practitioner Family
DX: I47.10 Supraventricular tachycardia, unspecified (principal); I51.89 Other ill-defined heart diseases
CPT/HCPCS: 93306; 93356

== ENCOUNTER → 2023-12-08 08:57 | Outpatient (BNV) | payer MEDICARE, SELFPAY | PROVIDERS: PCP Internal Medicine; Visit Provider Internal Medicine | DX: I31.39 Other pericardial effusion (noninflammatory) (principal); I51.89 Other ill-defined heart diseases | CPT/HCPCS: 93306; 93356 ==

== ENCOUNTER 2024-01-07 08:49 | Outpatient (AMB) | payer MEDICARE, SELFPAY ==
[2024-01-07 09:00] VITALS: BP 114/52; PULSE 55; BMI 30.1
--- NOTE | 2024-01-07 09:00 | MHC.OFFVIS ---
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 Allergies No Known Allergies Allergy (Verified 01/07/24 09:02) Medication List - Last Reconciled 01/07/24 by Dorina Sims NP-C citalopram 20 mg PO DAILY cyanocobalamin (vitamin B-12) 1,000 mcg PO DAILY ergocalciferol (vitamin D2) (Vitamin D2) 1,250 mcg PO QWEEK loratadine (Allergy Relief (loratadine)) 10 mg PO DAILY metoprolol succinate ER 50 mg PO DAILY omeprazole 20 mg PO DAILY pramipexole 1 mg PO TID pravastatin 40 mg PO BEDTIME valsartan 160 mg PO DAILY HPI HPI 3 mth f/up: Details: Karen is a 73-year-old female with past medical history hypertension, heart palpitations, brief SVT who presents for follow-up. Today she reports that she had palpitations once since her last visit here in September. She says the episode lasted 2-3 minutes and resolved. She has been taking her metoprolol as directed. No chest discomfort at rest or with activity. No presyncope, syncope, falls. No PND, orthopnea or edema. She does only light physical activities. Taking all meds as directed. Has 1 caffeinated beverage daily. [facility] Medical History Essential hypertension Surgical History History of appendectomy History of cholecystectomy Family History Father No problems noted. Mother No problems noted. Social History Patient Tobacco Use Status: Former Tobacco user Review of Systems Const All systems reviewed & are unremarkable except as noted in HPI and below ENT Denies dizziness Card Details: palpitations once since last visit Denies chest pain, Denies chest pain at rest, Denies chest pain with activity, Denies rapid heart rate, Denies pedal edema, Denies edema, Denies leg edema, Denies lightheadedness, Denies palpitations, Denies dyspnea, Denies dyspnea on exertion and Denies orthopnea Resp Denies cough, Denies dyspnea and Denies dyspnea on exertion GI Denies hematochezia and Denies change in stool character Musc Denies abnormal gait, Denies limited range of motion, Denies muscle cramps, Denies muscle weakness, Denies numbness, Denies radiating pain into limb, Denies stiffness and Denies tingling Neuro Denies abnormal gait, Denies dizziness, Denies numbness and Denies tingling Endo Denies palpitations Physical Exam Vital Signs: Last Vital Signs Pulse 55 01/07/24 09:00 BP 114/52 L 01/07/24 09:00 BMI result Body Mass Index 30.1 Const General: cooperative, healthy appearing, comfortable and no acute distress Orientation/consciousness: patient oriented x3 Neck Neck: Yes normal visual inspection Resp Effort & Inspection: normal respiratory effort Auscultation: clear to auscultation bilaterally, no crackles, no rales, no rhonchi and no wheezes Cardio Rate: regular rate Rhythm: regular rhythm Heart sounds: S1 normal heart sound present, S2 normal heart sound present, no murmurs and no rubs Neuro General: patient oriented x3 Extrem General: Yes normal to inspection, No no pedal edema and No calf tenderness Psych Appearance: grossly normal Mental Status: mental status grossly normal Speech and movement: Normal speech and movement present Assessment & Plan Assessment & Plan (1) Heart palpitations: Code(s): R00.2 - Palpitations Category: Medical Plan: On prior visits has reported heart palpitations which feels like a rapid heartbeat along with shortness of breath and lightheadedness, that occurred a few times a month. Prior echocardiogram from 2021 showed EF 60-65%, grade 2 diastolic dysfunction, small pericardial effusion. A CTA of the coronary arteries was done 2022 showing no significant disease, no coronary calcifications. She did wear a Holter monitor on 08/18/2023 for 14 days showing sinus rhythm with average heart rate 67, occasional PACs with 50 SVT events, fastest 188 bpm and longest 15 beats, her symptom of shortness of breath correlated with sinus rhythm. She was put on metoprolol XL 50 mg daily. Today she reports only 1 episode of palpitations since her last visit in September. She is currently pleased with how she is feeling. She drinks 1 caffeinated beverage daily. Suggested she switch to decaf. Reviewed stress reduction activities. Reviewed maintaining good hydration and get adequate rest. Will continue metoprolol at current dose. Vagal maneuver review. If she has sustained rapid heart palpitations she is to seek emergency medical care. Cardiology follow-up 6 months, sooner if needed. (2) Essential hypertension: Code(s): I10 - Essential (primary) hypertension Category: Medical Plan: Normal range today. No med changes made. (3) SOB (shortness of breath): Code(s): R06.02 - Shortness of breath Category: Medical Plan: As above, based on Holter this symptom is correlating with sinus rhythm. (4) SVT (supraventricular tachycardia): Code(s): I47.10 - Supraventricular tachycardia, unspecified Category: Medical Plan: Brief episodes as above Plan Time spent on chart review, documentation, interview and assessment Coding Level of Care Code Est Pt Level 3 (49963) Diagnoses Heart palpitations R00.2 Essential hypertension I10 SOB (shortness of breath) R06.02 SVT (supraventricular tachycardia) I47.10 Time Spent (min) 24
== END 2024-01-07 09:35 | disposition home or self-care (01) ==
PROVIDERS: PCP Internal Medicine; Visit Provider Nurse Practitioner Family
DX: R00.2 Palpitations (principal); I10 Essential (primary) hypertension; R06.02 Shortness of breath; I47.10 Supraventricular tachycardia, unspecified
CPT/HCPCS: 99213

== ENCOUNTER → 2024-01-07 08:49 | Outpatient (BNVA) | payer MEDICARE, SELFPAY | PROVIDERS: PCP Internal Medicine; Visit Provider Nurse Practitioner Family | DX: R00.2 Palpitations (principal); I10 Essential (primary) hypertension; I47.10 Supraventricular tachycardia, unspecified; R06.02 Shortness of breath | CPT/HCPCS: 99212 ==

== ENCOUNTER 2024-01-16 07:31 | Outpatient (REF) | payer MEDICARE, SELFPAY ==
[2024-01-16 07:57] LABS: MANUAL DIFF FLAG NO
[2024-01-16 08:21] LABS: Basophils Absolute Auto 0.1 X10*3/uL (0.0-0.2); Basophils Percent Auto 0.7 % (0-2); Eosinophils Absolute Auto 0.9 X10*3/uL (0.0-0.4); Eosinophils Percent Auto 9.2 % (0-4); Hematocrit 35.2 % (37.0-47.0); Hemoglobin 11.2 g/dl (12.0-16.0); Imm Gran Abs Auto 0.07 X10*3/uL (0.00-0.03); Imm Gran Pct Auto 0.7 % (0.0-0.4); Lymphocytes Absolute Auto 2.6 X10*3/uL (1.2-4.9); Mean Corpuscular HGB Conc 31.8 g/dl (31.0-35.0); Mean Corpuscular Hemoglobin 30.4 pg (27.0-33.0); Mean Corpuscular Volume 95.4 fL (80.0-98.0); Mean Platelet Volume 11.2 fL (9.4-12.3); Monocytes Absolute Auto 0.6 X10*3/uL (0.1-1.2); Neutrophils Absolute Auto 5.8 x10*3/uL (2.0-8.3); Neutrophils Percent Auto 57.4 % (45-73); Platelet Count 219 X10*3/uL (160-400); Red Blood Count 3.69 X10*6/uL (4.20-5.50); Red Cell Distribution Width 14.4 % (11.0-16.0); White Blood Count 10.1 X10*3/uL (4.8-10.8)
[2024-01-16 09:22] LABS: Alanine Aminotransferase 72 U/L (0-31); Albumin Level 3.8 g/dL (3.5-5.0); Alkaline Phosphatase 245 U/L (39-117); Anion Gap 12 (12-20); Aspartate Amino Transferase 50 U/L (5-31); Bilirubin Total 0.8 mg/dL (0.0-1.0); Blood Urea Nitrogen 13 mg/dL (9-16); Calcium 9.4 mg/dL (8.4-10.2); Carbon Dioxide 28 mmol/L (22-29); Chloride 107 mmol/L (96-108); Cholesterol 171 mg/dL (<200); Estimated Glomerular Filt Rate 59; Glucose Random 103 mg/dL (60-115); HDL Cholesterol 47 mg/dL (>40); LDL Cholesterol Calculated 109 mg/dL (<100); Potassium 4.5 mmol/L (3.3-5.1); Sodium 142 mmol/L (135-145); Total Protein 7.6 g/dL (6.5-8.0); Triglycerides 75 mg/dL (<150)
[2024-01-16 09:39] LABS: Thyroid Stimulating Hormone 4.83 uIU/mL (0.32-4.0)
== END 2024-01-16 07:32 | disposition home or self-care (01) ==
LOC: HO.LAB 07:31
PROVIDERS: PCP Internal Medicine; Visit Provider Internal Medicine
DX: E55.9 Vitamin D deficiency, unspecified (principal); E78.00 Pure hypercholesterolemia, unspecified; F32.5 Major depressive disorder, single episode, in full remission; I10 Essential (primary) hypertension; R00.2 Palpitations
CPT/HCPCS: 36415; 80053; 80061; 84443; 85025

== ENCOUNTER 2024-06-24 13:47 | Outpatient (AMB) | payer MEDICARE, SELFPAY ==
[2024-06-24 14:05] VITALS: BP 100/50; PULSE 57; BMI 29.2
--- NOTE | 2024-06-24 14:05 | MHC.OFFVIS ---
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 Accompanied by: Self / Same As Patient Allergies No Known Allergies Allergy (Verified 01/07/24 09:02) Medication List - Last Reconciled 06/24/24 by Dorina Sims, JOHN-C citalopram 20 mg PO DAILY cyanocobalamin (vitamin B-12) 1,000 mcg PO DAILY ergocalciferol (vitamin D2) (Vitamin D2) 1,250 mcg PO QWEEK loratadine (Allergy Relief (loratadine)) 10 mg PO DAILY metoprolol succinate ER 50 mg PO DAILY omeprazole 20 mg PO DAILY pramipexole 1 mg PO TID pravastatin 40 mg PO BEDTIME valsartan 160 mg PO DAILY HPI HPI 6 mth fu: Details: Karen is a 74-year-old female with past medical history hypertension, brief SVT who presents for follow-up. Today she reports that she had palpitations around once a month since her last visit here in December. She describes the episodes as brief lasting less than a minute. She can feel her heartbeat rapidly and she will cough which helps to slow it down. She has been drinking 1 caffeinated beverage daily. She has been noticing some lightheadedness with position changes. She has been working on diet control and tells me she has lost 20 lb in the last year. She has not had any medication adjustments in that time period. No presyncope, syncope, falls. No shortness of breath, PND, orthopnea or edema. Taking all meds as directed. [facility] Medical History Essential hypertension Surgical History History of appendectomy History of cholecystectomy Family History Father No problems noted. Mother No problems noted. Social History Alcohol intake: never Patient Tobacco Use Status: Former Tobacco user Review of Systems Const All systems reviewed & are unremarkable except as noted in HPI and below Denies chills, Denies fatigue, Denies fever(s), Denies weight gain and Denies weight loss ENT Details: lightheadedness at times Card Details: brief palpitations Denies chest pain, Denies leg edema, Denies lightheadedness, Denies palpitations, Denies dyspnea on exertion, Denies orthopnea and Denies other Resp Denies cough and Denies dyspnea on exertion GI Denies hematochezia and Denies change in stool character Musc Denies abnormal gait, Denies muscle weakness, Denies numbness, Denies radiating pain into limb and Denies tingling Neuro Denies abnormal gait, Denies numbness and Denies tingling Endo Denies fatigue and Denies palpitations Physical Exam Vital Signs: Last Vital Signs Pulse 57 06/24/24 14:05 BP 100/50 L 06/24/24 14:05 BMI result Body Mass Index 29.2 Const General: cooperative, healthy appearing, comfortable and no acute distress Orientation/consciousness: patient oriented x3 Neck Neck: Yes normal visual inspection and Yes no JVD Resp Effort & Inspection: normal respiratory effort Auscultation: clear to auscultation bilaterally, no rales, no rhonchi and no wheezes Cardio Rate: regular rate Rhythm: regular rhythm Heart sounds: S1 normal heart sound present, S2 normal heart sound present, no gallops, no murmurs and no rubs Neuro General: patient oriented x3 Extrem General: Yes normal to inspection, No no pedal edema and No calf tenderness Psych Appearance: grossly normal Mental Status: mental status grossly normal Speech and movement: Normal speech and movement present Office Procedures EKG Details: Today, read by me, Sinus bradycardia, rate 57, QTc 412ms [id number], Complete Assessment & Plan Assessment & Plan (1) Heart palpitations: Code(s): R00.2 - Palpitations Category: Medical Plan: Reports of heart palpitations with Newer finding of brief episodes of SVT. Prior echocardiogram from 2021 showed EF 60-65%, grade 2 diastolic dysfunction, small pericardial effusion. A CTA of the coronary arteries was done 2022 showing no significant disease, no coronary calcifications. Holter monitor 08/18/2023 for 14 days showing sinus rhythm with average heart rate 67, occasional PACs with 50 SVT events, fastest 188 bpm and longest 15 beats, her symptom of shortness of breath correlated with sinus rhythm. She was put on metoprolol XL 50 mg daily. Currently her heart palpitations are brief and occasional in occurrence. Emergency medical care if she has any sustained rapid palpitations. Cardiology follow-up 6 months, sooner if needed. (2) Essential hypertension: Code(s): I10 - Essential (primary) hypertension Category: Medical Plan: Blood pressure 100/50 initially and recheck done by me 96/48. She has some lightheadedness with position changes. She has reportedly lost 20 lb in the last year. Instructed on maintaining good hydration. Will reduce valsartan by half, down to 80 mg daily. Will forward this note to her PCP. (3) SVT (supraventricular tachycardia): Code(s): I47.10 - Supraventricular tachycardia, unspecified Category: Medical Plan: Brief episodes as above Plan Time spent on chart review, documentation, interview and assessment Medications: New valsartan 80 mg PO DAILY 30 tabs 2RF Coding Level of Care Code Est Pt Level 4 (94338) Complex EM visit Add On G2211 Diagnoses Heart palpitations R00.2 Essential hypertension I10 SVT (supraventricular tachycardia) I47.10 CPT Codes EKG - CPT: [id number], Complete ([id number]) Time Spent (min) 32
== END 2024-06-24 14:36 | disposition home or self-care (01) ==
PROVIDERS: PCP Internal Medicine; Visit Provider Nurse Practitioner Family
DX: R00.2 Palpitations (principal); I10 Essential (primary) hypertension; I47.10 Supraventricular tachycardia, unspecified
CPT/HCPCS: 93010; 99214; G2211

== ENCOUNTER → 2024-06-24 13:47 | Outpatient (BNVA) | payer MEDICARE, SELFPAY | PROVIDERS: PCP Internal Medicine; Visit Provider Nurse Practitioner Family | DX: R00.2 Palpitations (principal); I10 Essential (primary) hypertension; I47.10 Supraventricular tachycardia, unspecified; R00.1 Bradycardia, unspecified | CPT/HCPCS: 93005; 99212 ==

== ENCOUNTER 2024-08-06 07:33 | Outpatient (REF) | payer MEDICARE, SELFPAY ==
[2024-08-06 08:52] LABS: Alanine Aminotransferase 75 U/L (0-31); Albumin Level 4.1 g/dL (3.5-5.0); Alkaline Phosphatase 248 U/L (39-117); Aspartate Amino Transferase 62 U/L (5-31); Bilirubin Total 1.2 mg/dL (0.0-1.0); Blood Urea Nitrogen 14 mg/dL (9-16); Calcium 9.6 mg/dL (8.4-10.2); Estimated Glomerular Filt Rate > 60; Glucose Random 101 mg/dL (60-115); Total Protein 7.9 g/dL (6.5-8.0)
[2024-08-06 09:07] LABS: HBc Num1 0.48 S/CO (0.00-0.79); HBsAGNum1 0.35 S/CO (0.00-0.99); Hepatitis B Core Antibody Nonreactive (Nonreactive); Hepatitis B Surface Antigen Negative (Negative); ~HepC Num1 0.23 S/CO (0.00-0.79); ~Hepatitis B Surface Antibody NONREACTIVE (Nonreactive); ~Hepatitis C Antibody Nonreactive (Nonreactive)
[2024-08-06 09:16] LABS: Vitamin B12 1487 pg/mL (200-900)
[2024-08-06 09:20] LABS: Vitamin D 25-OH Total 30.6 ng/mL (>30)
[2024-08-06 09:23] LABS: Anion Gap 14 (12-20); Carbon Dioxide 27 mmol/L (22-29); Chloride 104 mmol/L (96-108); Potassium 4.5 mmol/L (3.3-5.1); Sodium 140 mmol/L (135-145)
[2024-08-13 16:44] LABS: Hepatitis C Genotype Not Detected
== END 2024-08-06 07:34 | disposition home or self-care (01) ==
LOC: HO.LAB 07:33
PROVIDERS: PCP Internal Medicine; Visit Provider Internal Medicine
DX: E55.9 Vitamin D deficiency, unspecified (principal); E78.00 Pure hypercholesterolemia, unspecified; F32.5 Major depressive disorder, single episode, in full remission; I10 Essential (primary) hypertension; R74.01 Elevation of levels of liver transaminase levels
CPT/HCPCS: 36415; 80053; 82306; 82607; 84443; 86704; 86706; 86803; 87340; 87902

== ENCOUNTER 2024-12-27 09:53 | Outpatient (AMB) | payer MEDICARE, SELFPAY ==
[2024-12-27 10:00] VITALS: BP 114/62; PULSE 55; BMI 30.1
--- NOTE | 2024-12-27 10:00 | MHC.OFFVIS ---
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 Allergies No Known Allergies Allergy (Verified 12/27/24 10:02) Medication List - Last Reconciled 12/27/24 by Dorina Sims, JOHN-C citalopram 20 mg PO DAILY cyanocobalamin (vitamin B-12) 1,000 mcg PO DAILY ergocalciferol (vitamin D2) (Vitamin D2) 1,250 mcg PO QWEEK loratadine (Allergy Relief (loratadine)) 10 mg PO DAILY metoprolol succinate ER 50 mg PO DAILY omeprazole 20 mg PO DAILY pramipexole 1 mg PO TID pravastatin 40 mg PO BEDTIME valsartan 80 mg PO DAILY HPI HPI 6m follow up: Details: Karen is a 74-year-old female with past medical history hypertension, brief SVT who presents for follow-up. Today she reports that she has been doing well without any recent heart palpitations. She drinks 1 caffeinated beverage per day. No recent lightheadedness. No chest discomfort, shortness of breath, leg edema. She reports good activity tolerance. Taking meds as directed. [facility] Medical History Essential hypertension Surgical History History of appendectomy History of cholecystectomy Family History Father No problems noted. Mother No problems noted. Social History Alcohol intake: never Patient Tobacco Use Status: Former Tobacco user Review of Systems Const All systems reviewed & are unremarkable except as noted in HPI and below ENT Denies dizziness Card Denies chest pain, Denies chest pain at rest, Denies chest pain with activity, Denies rapid heart rate, Denies pedal edema, Denies edema, Denies leg edema, Denies lightheadedness, Denies palpitations, Denies dyspnea, Denies dyspnea on exertion and Denies orthopnea Resp Denies cough, Denies dyspnea and Denies dyspnea on exertion GI Denies hematochezia and Denies change in stool character Musc Denies abnormal gait, Denies limited range of motion, Denies muscle cramps, Denies muscle weakness, Denies numbness, Denies radiating pain into limb, Denies stiffness and Denies tingling Neuro Denies abnormal gait, Denies dizziness, Denies numbness and Denies tingling Endo Denies palpitations Physical Exam Vital Signs: Last Vital Signs Pulse 55 12/27/24 10:00 BP 114/62 12/27/24 10:00 BMI result Body Mass Index 30.1 Const General: cooperative, healthy appearing, comfortable and no acute distress Orientation/consciousness: patient oriented x3 Neck Neck: Yes normal visual inspection and Yes no JVD Resp Effort & Inspection: normal respiratory effort Auscultation: clear to auscultation bilaterally, no rales, no rhonchi and no wheezes Cardio Rate: regular rate Rhythm: regular rhythm Heart sounds: S1 normal heart sound present, S2 normal heart sound present, no gallops, no murmurs and no rubs Neuro General: patient oriented x3 Extrem General: Yes normal to inspection, No no pedal edema and No calf tenderness Psych Appearance: grossly normal Mental Status: mental status grossly normal Speech and movement: Normal speech and movement present Assessment & Plan Assessment & Plan (1) Heart palpitations: Code(s): R00.2 - Palpitations Category: Medical Plan: Prior reports of heart palpitation with finding of brief SVT runs. Echocardiogram from 2021 showed EF 60-65%, grade 2 diastolic dysfunction, small pericardial effusion. A CTA of the coronary arteries was done 2022 showing no significant disease, no coronary calcifications. Holter monitor 08/18/2023 for 14 days showing sinus rhythm with average heart rate 67, occasional PACs with 50 SVT events, fastest 188 bpm and longest 15 beats, her symptom of shortness of breath correlated with sinus rhythm. She was put on metoprolol XL 50 mg daily and palpitations are now suppressed. Instructed to limit caffeine to 1 per day, maintain good hydration and adequate rest. Continue metoprolol. Cardiology follow-up 1 year, sooner if needed. (2) Essential hypertension: Code(s): I10 - Essential (primary) hypertension Category: Medical Plan: Blood pressure goal less than 130/80. Well controlled at this time. Labs 08/06/2024 showed potassium 4.5, creatinine 0.88. Continue valsartan and metoprolol. (3) SVT (supraventricular tachycardia): Code(s): I47.10 - Supraventricular tachycardia, unspecified Category: Medical Plan: Brief episodes as above Plan Time spent on chart review, documentation, interview and assessment Coding Level of Care Code Est Pt Level 4 (53049) Complex EM visit Add On G2211 Diagnoses Heart palpitations R00.2 Essential hypertension I10 SVT (supraventricular tachycardia) I47.10 Time Spent (min) 28
--- OUTSIDE RECORDS SUMMARY | 2024-12-27 11:38 | XMS_ITS | Patient Health Record ---
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 Name Role Phone Cheryl Jacome Primary Care Provider UnavailOscar Duarte Unavailable [phone] Allergies Allergen (clinical drug ingredient) Drug/Non Drug Allergy documented on EMR Reaction Allergy Type Onset Date Status Pollen pollen (uncoded) Unknown Allergy Act gavin Reason For Referral No Information Medications Medication SIG (Take, Route, Frequency, Duration) Notes Start Date End Date Status Citalopram Hydrobromide 20 MG TAKE ONE TABLET BY MOUTH EVERY DAY Oral for 30 Active Vitamin B12 100 MCG Orally prn Active ibuprofen 1 tab Oral prn Activ e Social History Tobacco Use: Social History Observation Description Date Details (start date - stop date) Former Smoker NA - NA Tobacco Use/Smoking Question Answer Notes Patient is a former smoker How long has it been since you last smoked? > 10 years Alcohol Screen Question Answer Notes Did you have a drink containing alcohol in the p ast year? No Points 0 Interpretation Negative Section Notes: Nonsmoker; no sig alcohol Problems Problem Type SNOMED Code ICD Code Onset Dates Problem Status W/U Status Risk Notes Problem 106146227 Encounter for screening for malignant neoplasm of colon (Z12.11) Active confirmed Problem [id number] Preprocedural examination (Z01.818) Active confirmed Plan Of Treatment Future Test Test Name Order Date COLONOSCOPY 09/16/2016 Insurance Providers Payer Name Payer Address Payer Phone Subscriber Number Group Number Insured Name Patient Relationship to Insured Coverage Start Date Coverage End Date [facility] [address] KARIE PARKER [id number] [place] Self - patient is the insured Medical (General) History Medical History History ICD Code Denies [place],DM,CVA,Lung disease,renal dise ase Screening colonoscopy 02-18-2002--negati ve except for internal hemorrhoids Depression/Anxiety Occasional GERD Surgical History Surgery Date(Month/Year) Left knee replacement--Dr. Dowell 12/2015 [facility] 06/2003 Incisional hernia 06/2003
== END 2024-12-27 10:31 | disposition home or self-care (01) ==
LOC: HO.HCS 09:54
PROVIDERS: PCP Internal Medicine; Visit Provider Nurse Practitioner Family
DX: R00.2 Palpitations (principal); I10 Essential (primary) hypertension; I47.10 Supraventricular tachycardia, unspecified
CPT/HCPCS: 99214; G2211

== ENCOUNTER → 2024-12-27 09:53 | Outpatient (BNVA) | payer MEDICARE, SELFPAY | PROVIDERS: PCP Internal Medicine; Visit Provider Nurse Practitioner Family | DX: R00.2 Palpitations (principal); I10 Essential (primary) hypertension; I47.10 Supraventricular tachycardia, unspecified; Z87.891 Personal history of nicotine dependence | CPT/HCPCS: 99212 ==

== ENCOUNTER 2025-02-11 07:33 | Outpatient (REF) | payer MEDICARE, SELFPAY ==
--- OUTSIDE RECORDS SUMMARY | 2025-02-11 07:37 | XMS_ITS | Patient Health Record ---
Author Organization [facility] Address [address] [place] [address] Care Team Providers Care Van Cdl Driver Name Role Phone Cheryl Jacome Primary Care Provider UnavailOscar Duarte Unavailable [phone] Allergies Allergen (clinical drug ingredient) Drug/Non Drug Allergy documented on EMR Reaction Allergy Type Onset Date Status Pollen pollen (uncoded) Unknown Allergy Act gavin Reason For Referral No Information Medications Medication SIG (Take, Route, Frequency, Duration) Notes Start Date End Date Status Citalopram Hydrobromide 20 MG TAKE ONE TABLET BY MOUTH EVERY DAY Oral; Duration: 30 Active Vitamin B12 100 MCG Orally [...] Problem Status W/U Status Risk Notes Problem Screening for malignant neoplasm of colon (849839567) Encounter for screening for malignant neoplasm of colon (Z12.11) Active confirmed Problem Preprocedural examination ([id number]) Preprocedural examination (Z01.818) Active confirmed Plan Of Treatment Future Test Test Name Order Date COLONOSCOPY 09/16/2016 Insurance Providers Payer Name Payer Address Payer Phone Subscriber Number Group Number Insured Name Patient Relationship to Insured Coverage Start Date Coverage End Date [facility] [id number] KARIE PARKER [id number] [place] Self - patient is the insured Medical (General) History Medical History History ICD Code Denies [place],DM,CVA,Lung disease,renal dise ase Screening colonoscopy 02-18-2002--negati ve except for internal hemorrhoids Depression/Anxiety Occasional GERD Surgical History Surgery Date(Month/Year) Left knee replacement--Dr. Dowell 12/2015 [facility] 06/2003 Incisional hernia 06/2003
[2025-02-11 07:41] LABS: MANUAL DIFF FLAG NO
[2025-02-11 08:14] LABS: Hematocrit 35.7 % (37.0-47.0); Hemoglobin 11.4 g/dl (12.0-16.0); Imm Gran Abs Auto 0.08 X10*3/uL (0.00-0.03); Imm Gran Pct Auto 0.7 % (0.0-0.4); Lymphocytes Absolute Auto 1.9 X10*3/uL (1.2-4.9); Mean Corpuscular HGB Conc 31.9 g/dl (31.0-35.0); Mean Corpuscular Hemoglobin 31.1 pg (27.0-33.0); Mean Corpuscular Volume 97.3 fL (80.0-98.0); NRBC Abs Auto 0.000 X10*3/uL (0.0-0.012); NRBC Pct Auto 0.0 /100WBC (0.0-0.2); Platelet Count 190 X10*3/uL (160-400); Red Blood Count 3.67 X10*6/uL (4.20-5.50); White Blood Count 10.9 X10*3/uL (4.8-10.8)
[2025-02-11 08:46] LABS: Alanine Aminotransferase 114 U/L (0-31); Albumin Level 3.9 g/dL (3.5-5.0); Alkaline Phosphatase 251 U/L (39-117); Anion Gap 12 (12-20); Aspartate Amino Transferase 98 U/L (5-31); Blood Urea Nitrogen 12 mg/dL (9-16); Calcium 9.0 mg/dL (8.4-10.2); Carbon Dioxide 27 mmol/L (22-29); Chloride 106 mmol/L (96-108); Cholesterol 158 mg/dL (<200); Estimated Glomerular Filt Rate > 60; HDL Cholesterol 50 mg/dL (>40); Potassium 4.3 mmol/L (3.3-5.1); Sodium 141 mmol/L (135-145); Total Protein 7.6 g/dL (6.5-8.0); Triglycerides 63 mg/dL (<150)
== END 2025-02-11 07:34 | disposition home or self-care (01) ==
LOC: HO.LAB 07:33
PROVIDERS: PCP Internal Medicine; Visit Provider Internal Medicine
DX: E55.9 Vitamin D deficiency, unspecified (principal); E78.00 Pure hypercholesterolemia, unspecified; F32.5 Major depressive disorder, single episode, in full remission; H91.90 Unspecified hearing loss, unspecified ear; I10 Essential (primary) hypertension; N30.00 Acute cystitis without hematuria; R74.01 Elevation of levels of liver transaminase levels
CPT/HCPCS: 36415; 80053; 80061; 85025

== ENCOUNTER 2025-03-26 09:17 | Emergency (ER) | payer MEDICARE, SELFPAY ==
--- NOTE | ~2025-03-26 | CT_ITS ---
CLINICAL HISTORY: new jaundice CT abdomen and pelvis with contrast Comparison: None provided Findings: No consolidation or effusion. The heart is mildly enlarged. There is moderate intrahepatic biliary ductal prominence The gallbladder is absent. No radiopaque calculus seen along the common bile duct. The spleen is enlarged. No urinary calculus or obstructive uropathy. The bladder is distended. No bowel obstruction or free air. Scattered gas and fluid throughout nondistended small and large bowel noted. Mild atherosclerotic disease. Right adnexal cyst, measuring up to 2.2 cm. No acute osseous findings. Impression: Moderate intrahepatic biliary ductal prominence with no common bile duct stone identified. No pancreatic mass by CT. Splenomegaly Additional incidental findings. This document has been electronically signed by: Anthony Aquino MD on 03/26/2025 12:39:47
--- NOTE | ~2025-03-26 | MR_ITS ---
CLINICAL HISTORY: jaundice evaluation for CBD obstruction MRCP without gadolinium Comparison: CT/SR - CT ABDOMEN PELVIS W IV CON - 03/26/25 11:37 EST Findings: Examination limited and degraded by patient motion artifact. Gallbladder is absent. Moderate intrahepatic biliary ductal dilatation especially in the left hepatic lobe. Common bile duct C4-5 mm diameter. Limited evaluation of common bile duct for stones due to the artifact with no definite choledocholithiasis. Pancreas and adrenal glands within normal limits. Spleen is within normal limits. Multiple very small bilateral renal T2 hyperintense round lesions likely cysts but most of these are too small to be fully characterized. No free fluid. T11, T12 and L1 nonspecific T2 round hyperintense lesions. IMPRESSION: 1. Limited examination by patient motion artifact. Common bile duct is not dilated. No definite choledocholithiasis. 2. Moderate intrahepatic biliary ductal dilatation especially in the left hepatic lobe. 3. Previous cholecystectomy. This document has been electronically signed by: Helga Ortiz MD on 03/26/2025 18:10:34
--- NOTE | ~2025-03-26 | US_ITS ---
CLINICAL HISTORY: eval for CBD stone, jaundice, elevated lfts US abdomen limited Comparison: None provided Findings: The visualized pancreas is normal. The aorta and inferior vena cava are normal caliber. The liver is normal in size and exhibits a few scattered coarse calcifications, otherwise normal in echotexture. There is no intrahepatic bile duct dilatation. The common duct is 11 mm in diameter. The gallbladder is surgically absent. The main portal vein is antegrade. The right kidney is 11.2 cm in length. No ascites. IMPRESSION: Absent gallbladder. Probable mild postsurgical prominence of the common bile duct. No choledocholithiasis identified. This document has been electronically signed by: Anthony Aquino MD on 03/26/2025 11:07:51
[2025-03-26 09:27] VITALS: BP 124/56; PULSE 61; RESP 18; TEMP 36.5; O2SAT 95; BMI 29.0
--- NOTE | 2025-03-26 09:53 | ED.GENADULT ---
HPI - General Adult General Chief complaint: General Medical Stated complaint: Jaundice Time Seen by Provider: 03/26/25 09:53 Source: patient and family Mode of arrival: ambulatory Limitations: no limitations History of Present Illness ED Provider: HPI narrative: 75-year-old woman presentng with jaundice that was noticed by family yesterday, patient has had dark urine for the past month or so as well, states her LFTs has been elevated and her PCP was going to send her to Dr. Ca in June. Denies nausea, vomiting, hematemesis hematochezia, does not really use acetaminophen does not use alcohol, no travels outside the country, no weight loss, no abdominal pain waking her up from sleep. history of cholecystectomy Related Data Home Medications ?Medication ?Instructions ?Recorded ?Confirmed citalopram 20 mg tablet 20 mg PO DAILY 02/18/21 12/27/24 loratadine 10 mg tablet (Allergy 10 mg PO DAILY 02/18/21 12/27/24 Relief (loratadine)) pramipexole 1 mg tablet 1 mg PO TID 02/18/21 12/27/24 pravastatin 40 mg tablet 40 mg PO BEDTIME 02/18/21 12/27/24 metoprolol succinate 50 mg 50 mg PO DAILY 06/16/22 12/27/24 tablet,extended release 24 hr omeprazole 20 mg capsule,delayed 20 mg PO DAILY 06/16/22 12/27/24 release cyanocobalamin (vitamin B-12) 1,000 mcg PO DAILY 10/12/23 12/27/24 1,000 mcg tablet ergocalciferol (vitamin D2) 1,250 1,250 mcg PO QWEEK 01/07/24 12/27/24 mcg (50,000 unit) capsule (Vitamin D2) Previous Rx's ?Medication ?Instructions ?Recorded valsartan 80 mg tablet 80 mg PO DAILY #30 tabs 06/24/24 Allergies Allergy/AdvReac Type Severity Reaction Status Date / Time No Known Allergies Allergy Verified 03/26/25 09:29 Review of Systems Constitutional: Constitutional: Reports as per [facility] Past Medical History Medical History Essential hypertension Surgical History History of appendectomy History of cholecystectomy Family History Family History Father No problems noted. Mother No problems noted. Social History Social History Alcohol intake: never Patient Tobacco Use Status: Former Tobacco user Smoked in Last 30 Days: No Use of substances other than those prescribed or required for medical reasons: No Advance Directives: No Advance Directives Information Provided: No Do you have a plan to hurt others: No Plan Physical Exam ED Exam Exam: General: looks age appropriate Scleral icterus Neck: Supple, no LAD CV: RRR, no obvious murmurs appreciated Resp: ?No wheezing rales rhonchi no stridor moving air well Abd: ?Bowel sounds are present, no tenderness no rebound no rigidity MSK: FROM, strength 5/5 all extremities Skin: jaundice Neuro: ?Alert and oriented x3, moving upper and lower extremities symmetrically, no obvious facial asymmetry noted, cranial nerves 2-12 intact Vital Signs: Vital Signs - 24 hr 03/26/25 09:27 03/26/25 13:51 03/26/25 17:00 Temperature 97.7 F 98.2 F 98.3 F Pulse Rate 61 62 67 Respiratory Rate 18 18 16 Blood Pressure 124/56 L 134/46 L 136/49 L Pulse Oximetry 95 96 96 Oxygen Delivery Method Room Air Room Air 03/26/25 19:34 Temperature 97.6 F Pulse Rate 63 Respiratory Rate 16 Blood Pressure 137/40 L Pulse Oximetry 98 Oxygen Delivery Method Room Air BMI result Body Mass Index 29.0 Medications Administered Discontinued Medications Generic Name Dose Route Start Last Admin Trade Name Freq PRN Reason Stop Dose Admin Iohexol 100 ml 03/26/25 11:37 03/26/25 11:37 Iohexol 350 Mg/Ml 100 Ml Infus..Btl IV 03/26/25 11:38 85 ml ONCE ONE Administration Medical Decision Making Medical Decision Making MDM Narrative: 10:08 AM 03/26/2025 (Dr. Eliecer Osullivan): we will obtain hepatitis A panel, was checked by PCP with a hepatitis-B and C, LFTs has been elevating since July of this year, though risk factors for EtOH or chronic acetaminophen overdose but we will check those labs as well, we will obtain imaging to evaluate for any pancreatic masses with the obstructive symptoms 12:53 PM 03/26/2025 (Dr. Eliecer Osullivan): sent text to Dr. Ca from GI, her CT ultrasound blood work discussed in tiger text, there are no masses, she is status post cholecystectomy CBD mildly prominent, my question is source of jaundice, fractionated bilirubin ordered, no evidence for hemolytic anemia, tox panel negative, hepatitis A still pending 1:31 PM 03/26/2025 (Dr. Eliecer Osullivan): from Dr. Ca: stat MRCP to see if they can do it today to rule out either a CBD stone or pancreatic mass. If that is also negative then we could pursue further liver workup as an outpatient. If the MRCP shows any obstructive process then she would need admission for an ERCP. If she is discharged I can move her office appointment up to a sooner date. But let me know the results of the MRCP once you get it. if patient is able to get MRCP we will obtain in the ER if not I will admit patient's MRCP showed no evidence of common duct stone. I contacted GI. Lyle there is a possible obstruction higher up can not rule out the possibility of malignancy. Feel patient more appropriate to be transferred to tertiary care center. Patient case discussed with [facility] they are closed. Patient's case was then discussed with [email or web address] They accepted patient to Dr. Ray service. Going to [facility]. Risk and benefits of transfer explained to patient patient accepted. Differential Diagnosis Differential Diagnoses: The differential diagnosis associated with the presentation includes ( hepatitis, cholecystitis, cholangitis, pancreatic mass, alcohol use disorder, acetaminophen over use) Cancer, common duct stone Admission/Observation Consideration of admission/observation: Escalation of care including admission/observation considered Consult Healthcare Provider Management of the patient was discussed with: Hotel Valet Attendant ( GI) Lab Data MDM Lab Attestation statement: I reviewed the patient's lab results. 03/26/25 09:38 03/26/25 09:38 Labs: Lab Results 03/26/25 03/26/25 03/26/25 Range/Units 09:38 09:43 11:11 WBC 8.9 (4.8-10.8) X10*3/uL RBC 3.26 L (4.20-5.50) X10*6/uL Hgb 10.4 L (12.0-16.0) g/dl Hct 32.1 L (37.0-47.0) % MCV 98.5 H (80.0-98.0) fL MCH 31.9 (27.0-33.0) pg MCHC 32.4 (31.0-35.0) g/dl RDW 16.0 (11.0-16.0) % Plt Count 142 L D (160-400) X10*3/uL MPV 11.7 (9.4-12.3) fL Immature Gran % (Auto) 0.8 H (0.0-0.4) % Neut % (Auto) 70.0 (45-73) % Lymph % (Auto) 16.5 L (20-40) % Bell % (Auto) 7.5 (2-11) % Eos % (Auto) 4.5 H (0-4) % Baso % (Auto) 0.7 (0-2) % Lymph # (Auto) 1.5 (1.2-4.9) X10*3/uL Bell # (Auto) 0.7 (0.1-1.2) X10*3/uL Eos # (Auto) 0.4 (0.0-0.4) X10*3/uL Baso # (Auto) 0.1 (0.0-0.2) X10*3/uL Abs Immat Gran (auto) 0.07 H (0.00-0.03) X10*3/uL Absolute Neuts (auto) 6.3 (2.0-8.3) x10*3/uL Absolute Nucleated RBC 0.000 (0.0-0.012) X10*3/uL Nucleated RBC % (auto) 0.0 (0.0-0.2) /100WBC PT 13.3 (11.2-13.5) SEC INR 1.1 (0.9-1.1) Sodium 140 (135-145) mmol/L Potassium 3.7 (3.3-5.1) mmol/L Chloride 108 (96-108) mmol/L Carbon Dioxide 24 (22-29) mmol/L Anion Gap 12 (12-20) BUN 13 (9-16) mg/dL Creatinine 0.73 (0.5-1.4) mg/dL Estim Creat Clear Calc 64.3 Estimated GFR > 60 Random Glucose 121 H (60-115) mg/dL Haptoglobin (63-273) mg/dL Calcium 9.1 (8.4-10.2) mg/dL Total Bilirubin 8.6 H (0.0-1.0) mg/dL Direct Bilirubin 5.8 H (0.0-0.5) mg/dL AST 125 H (5-31) U/L ALT 151 H (0-31) U/L Alkaline Phosphatase 385 H (39-117) U/L Ammonia 65 H (13-55) umol/L Lactate Dehydrogenase (122-220) U/L Total Protein 8.0 (6.5-8.0) g/dL Albumin 3.9 (3.5-5.0) g/dL Lipase 29 (8-78) U/L Urine Color Dark Yellow Urine Appearance Cloudy Urine pH 6.0 (5.0-9.0) Ur Specific Otto 1.015 (1.005-1.025) Urine Protein Negative (Neg-Trace) mg/dL Urine Glucose (UA) Negative (Negative) mg/dL Urine Ketones Negative (Negative) mg/dL Urine Blood Trace H (Negative) Urine Nitrite Negative (Negative) Ur Leukocyte Esterase Moderate (2+) H (Negative) Urine RBC 3-5 H (0-2) /HPF Urine WBC 11-20 H (0-5) /HPF Ur Squamous Epith Cells 11-20 (0-2) /HPF Urine Bacteria 2+ (None Seen) Hyaline Casts 0-2 (0-2) /LPF Acetaminophen (<30) mcg/mL Ethyl Alcohol mg/dL 03/26/25 Range/Units 11:49 WBC (4.8-10.8) X10*3/uL RBC (4.20-5.50) X10*6/uL Hgb (12.0-16.0) g/dl Hct (37.0-47.0) % MCV (80.0-98.0) fL MCH (27.0-33.0) pg MCHC (31.0-35.0) g/dl RDW (11.0-16.0) % Plt Count (160-400) X10*3/uL MPV (9.4-12.3) fL Immature Gran % (Auto) (0.0-0.4) % Neut % (Auto) (45-73) % Lymph % (Auto) (20-40) % Bell % (Auto) (2-11) % Eos % (Auto) (0-4) % Baso % (Auto) (0-2) % Lymph # (Auto) (1.2-4.9) X10*3/uL Bell # (Auto) (0.1-1.2) X10*3/uL Eos # (Auto) (0.0-0.4) X10*3/uL Baso # (Auto) (0.0-0.2) X10*3/uL Abs Immat Gran (auto) (0.00-0.03) X10*3/uL Absolute Neuts (auto) (2.0-8.3) x10*3/uL Absolute Nucleated RBC (0.0-0.012) X10*3/uL Nucleated RBC % (auto) (0.0-0.2) /100WBC PT (11.2-13.5) SEC INR (0.9-1.1) Sodium (135-145) mmol/L Potassium (3.3-5.1) mmol/L Chloride (96-108) mmol/L Carbon Dioxide (22-29) mmol/L Anion Gap (12-20) BUN (9-16) mg/dL Creatinine (0.5-1.4) mg/dL Estim Creat Clear Calc Estimated GFR Random Glucose (60-115) mg/dL Haptoglobin 116 (63-273) mg/dL Calcium (8.4-10.2) mg/dL Total Bilirubin (0.0-1.0) mg/dL Direct Bilirubin (0.0-0.5) mg/dL AST (5-31) U/L ALT (0-31) U/L Alkaline Phosphatase (39-117) U/L Ammonia (13-55) umol/L Lactate Dehydrogenase 164 (122-220) U/L Total Protein (6.5-8.0) g/dL Albumin (3.5-5.0) g/dL Lipase (8-78) U/L Urine Color Urine Appearance Urine pH (5.0-9.0) Ur Specific Otto (1.005-1.025) Urine Protein (Neg-Trace) mg/dL Urine Glucose (UA) (Negative) mg/dL Urine Ketones (Negative) mg/dL Urine Blood (Negative) Urine Nitrite (Negative) Ur Leukocyte Esterase (Negative) Urine RBC (0-2) /HPF Urine WBC (0-5) /HPF Ur Squamous Epith Cells (0-2) /HPF Urine Bacteria (None Seen) Hyaline Casts (0-2) /LPF Acetaminophen < 3 (<30) mcg/mL Ethyl Alcohol < 10 mg/dL Radiology Impression Discussion of test interpretation with radiology: I have reviewed the radiologist's reading. Radiologist Impression: Moderate intrahepatic biliary ductal prominence with no common bile duct stone identified. No pancreatic mass by CT. Splenomegaly Additional incidental findings. IMPRESSION: Absent gallbladder. Probable mild postsurgical prominence of the common bile duct. No choledocholithiasis identified. External Record Review External record reviewed: Inpatient record Chronic Conditions elevated bilirubin Social Determinants Patient?s care significantly limited by Social Determinants of Health including: Problems related to primary support group Critical Care Time Critical Care Time Critical Care Time: Yes Total Critical Care Time: 40 Attestation: I have personally provided 40 minutes of critical care time exclusive of time spent on separately billable procedures. Time includes review of lab data, radiology results, discussion with consultants, and monitoring for potential decompensation. Interventions were performed as documented above Discharge Plan Discharge Clinical Impression: Elevated bilirubin Patient Disposition: [facility] Prescriptions: No Action pramipexole 1 mg tablet 1 mg PO TID loratadine [Allergy Relief (loratadine)] 10 mg tablet 10 mg PO DAILY citalopram 20 mg tablet 20 mg PO DAILY pravastatin 40 mg tablet 40 mg PO BEDTIME omeprazole 20 mg capsule,delayed release(DR/EC) 20 mg PO DAILY metoprolol succinate 50 mg tablet extended release 24 hr 50 mg PO DAILY cyanocobalamin (vitamin B-12) 1,000 mcg tablet 1,000 mcg PO DAILY ergocalciferol (vitamin D2) [Vitamin D2] 1,250 mcg (50,000 unit) capsule 1,250 mcg PO QWEEK valsartan 80 mg tablet 80 mg PO DAILY Qty: 30 2RF Print Language: Irish
[2025-03-26 10:06] LABS: Alanine Aminotransferase 151 U/L (0-31); Albumin Level 3.9 g/dL (3.5-5.0); Alkaline Phosphatase 385 U/L (39-117); Anion Gap 12 (12-20); Aspartate Amino Transferase 125 U/L (5-31); Blood Urea Nitrogen 13 mg/dL (9-16); Calcium 9.1 mg/dL (8.4-10.2); Carbon Dioxide 24 mmol/L (22-29); Chloride 108 mmol/L (96-108); Creatinine Clr Calc Pharmacy 64.3; Estimated Glomerular Filt Rate > 60; Lipase 29 U/L (8-78); Potassium 3.7 mmol/L (3.3-5.1); Sodium 140 mmol/L (135-145); Total Protein 8.0 g/dL (6.5-8.0)
[2025-03-26 10:08] LABS: Appearance Urine Cloudy; Glucose Urine UA Negative (Negative); PH 6.0 (5.0-9.0); Specific Gravity - Urine 1.015 (1.005-1.025); UMIC TRIGGER UACC YES
[2025-03-26 10:13] LABS: UACC Culture Trigger YES
[2025-03-26 10:24] LABS: Hematocrit 32.1 % (37.0-47.0); Hemoglobin 10.4 g/dl (12.0-16.0); Mean Corpuscular HGB Conc 32.4 g/dl (31.0-35.0); Mean Corpuscular Hemoglobin 31.9 pg (27.0-33.0); Mean Corpuscular Volume 98.5 fL (80.0-98.0); Platelet Count 142 X10*3/uL (160-400); Red Blood Count 3.26 X10*6/uL (4.20-5.50); White Blood Count 8.9 X10*3/uL (4.8-10.8)
[2025-03-26 10:25] LABS: Lymphocytes Absolute Auto 1.5 X10*3/uL (1.2-4.9); NRBC Pct Auto 0.0 /100WBC (0.0-0.2)
[2025-03-26 10:26] LABS: MANUAL DIFF FLAG NO; NRBC Abs Auto 0.000 X10*3/uL (0.0-0.012)
[2025-03-26 10:40] LABS: Imm Gran Abs Auto 0.07 X10*3/uL (0.00-0.03); Imm Gran Pct Auto 0.8 % (0.0-0.4)
[2025-03-26 11:24] LABS: INTERNATIONAL NORM RATIO 1.1 (0.9-1.1); Prothrombin Time 13.3 SEC (11.2-13.5)
[2025-03-26 11:29] LABS: Ammonia 65 umol/L (13-55)
[2025-03-26] MEDS: iohexoL 350 MG/ML 100 ML INFUS..BTL IV (11:37)
[2025-03-26 12:45] LABS: Acetaminophen LAB < 3 mcg/mL (<30)
[2025-03-26 13:51] VITALS: BP 134/46; PULSE 62; RESP 18; TEMP 36.8; O2SAT 96
[2025-03-26 17:00] VITALS: BP 136/49; PULSE 67; RESP 16; TEMP 36.8; O2SAT 96
[2025-03-26 19:34] VITALS: BP 137/40; PULSE 63; RESP 16; TEMP 36.4; O2SAT 98
--- NOTE | 2025-03-26 19:38 | PC.NURSE ---
Assumed care of pt. pt found AOx4 resting in her bed and is currently asymptomatic w/ no pain or other complaints. PT presents with jaundice skin and sclera. Awaiting transfer to [facility].
--- NOTE | 2025-03-26 21:22 | PC.NURSE ---
Nurse to nurse report given to DOMO Reid at [facility] [place].
--- NOTE | 2025-03-26 22:08 | PC.NURSE ---
ems at bedside for report and transfer
[2025-03-26 22:12] VITALS: BP 127/52; PULSE 80; RESP 16; TEMP 37.1; O2SAT 97
[2025-03-31 08:08] LABS: Hepatitis A Antibody IgM 0.15 Index (0-0.79); ~Hepatitis A Antibody IgG 0.59 S/CO (0.00-0.99); ~Hepatitis A Antibody IgM Nonreactive (Nonreactive)
== END 2025-03-26 22:15 | disposition short-term general hospital (02) ==
PROVIDERS: Emergency Medicine; Emergency Provider Emergency Medicine Emergency Medical Services; PCP Internal Medicine
DX: R17 Unspecified jaundice (principal); I10 Essential (primary) hypertension; Z79.899 Other long term (current) drug therapy; Z90.49 Acquired absence of other specified parts of digestive tract; Z87.891 Personal history of nicotine dependence
CPT/HCPCS: 36415; 74177; 74181; 76705; 80053; 80143; 80307; 81001; 81003; 82140; 82248; 83010; 83615; 83690; 85025; 85610; 86708; 86709; 87086; 99285; Q9967

== ENCOUNTER → 2025-03-26 10:10 | Outpatient (BNV) | payer MEDICARE, SELFPAY | PROVIDERS: Emergency Provider Emergency Medicine; PCP Internal Medicine; Visit Provider Radiology Vascular & Interventional Radiology | DX: R17 Unspecified jaundice (principal); K83.8 Other specified diseases of biliary tract; R16.1 Splenomegaly, not elsewhere classified; R94.5 Abnormal results of liver function studies; Z90.49 Acquired absence of other specified parts of digestive tract | CPT/HCPCS: 74177; 74181; 76705 ==